=== PATIENT | female | born 1985 | race African-American/Black ===

== ENCOUNTER 2018-06-12 20:36 | Emergency (ER) | payer OTHER ==
[2018-06-12 20:53] LABS: Glucose,Whole Blood 85 mg/dL (75-99)
[2018-06-12 20:54] VITALS: RESP 18
[2018-06-12] MEDS ORDERED: SODIUM CHLORIDE 0.9% 1,000 ML IV STA (20:57)
--- NOTE | 2018-06-12 21:17 | ED ---
General Adult HPI - General Chief complaint: Seizure Stated complaint: seizure Source: patient, EMS Mode of arrival: EMS Limitations: no limitations - History of Present Illness Initial comments: Dictation was produced using go2 media dictation software. please excuse any grammatical, word or spelling errors. Chief Complaint: 33-year-old -[place] female past medical history of nonepileptic genic seizures presents after tonic-clonic activity. History of Present Illness: Patient is a 33-year-old -[place]e female who has past medical history of non-epileptogenic seizures presents after seizure-like episode. Patient was brought in by EMS. [place] she all of a sudden went into tonic-clonic like activity. Patient allegedly was having this type of activity for 15 minutes. EMS was called and she was rapidly given 10 mg of IM Versed. who is at bedside reports that patient has history of non-epileptogenic seizures. She was on certain medication however she was weaned off. states that the neurologist told her that this was triggered by anxiety. reports that she's been stressed recently. Patient unable to provide HPI at this time given she was just administered benzodiazepines. - Related Data Home Medications Medication Instructions Recorded Confirmed Unknown Control 1 tab PO DAILY 06/12/18 Allergies Allergy/AdvReac Type Severity Reaction Status Date / Time No Known Allergies Allergy Verified 06/12/18 21:40 Review of Systems ROS Statement: Those systems with pertinent positive or pertinent negative responses have been documented in the HPI. ROS Other: All systems not noted in ROS Statement are negative. Past Medical History Past Medical History: Seizure Disorder Additional Past Medical History / Comment(s): per - conversion disorder History of Any Multi-Drug Resistant Organisms: None Reported Past Surgical History: No Surgical Hx Reported Past Psychological History: No Psychological Hx Reported Smoking Status: Never smoker Past Alcohol Use History: Occasional Past Drug Use History: None Reported General Exam - General Exam Comments Initial Comments: PHYSICAL EXAM: General Impression: No acute distress HEENT: Normocephalic atraumatic, extra-ocular movements intact, pupils equal and reactive to light bilaterally, mucous membranes moist. Cardiovascular: Heart regular rate and rhythm, S1&S2 audible, no murmurs, rubs or gallops Chest: Lungs clear to auscultation bilaterally, no rhonchi, no wheeze, no rales Abdomen: Bowel sounds present, abdomen soft, non-tender, non-distended, no organomegaly Musculoskeletal: Pulses present and equal in all extremities, no peripheral edema Motor: no focal deficits noted Neurological: Moves all shows grossly Skin: Intact with no visualized rashes Psych: Not tested Limitations: no limitations Course Vital Signs 06/12/18 06/12/18 20:39 21:25 Temperature 98.8 F Pulse Rate 97 77 Respiratory 18 18 Rate Blood Pressure 102/55 104/60 O2 Sat by Pulse 100 100 Oximetry Medical Decision Making - Medical Decision Making ED course: 33-year-old -[place]amese female with known history of non- Trileptal genic seizures presents after a seizure. Vital signs upon arrival are within acceptable limits.Laboratory evaluation obtained. CBC is unremarkable. Chem she panel is negative. Patient has mild non-gap acidosis. Urine studies show mild ketonuria. However no signs to suggest urinary tract infection. Patient was observed in emergency department for several hours. More history was obtained from patient and patient's . Patient sees a specialist in [place]. They state that she has diagnosis of conversion disorder. They state that they can follow up with that physician this week. At this point patient is clear for discharge. Patient is agreeable and will follow up with neurologist. EKG Interpretation: A 12 lead EKG was obtained. It was interpreted by myself and attending physician. There is a P wave before every QRS complex. Rate is 85. Rhythm is normal sinus rhythm, DE interval 170, QRS 82, QTc 447. QT is not prolonged. No ST segment depression or elevation. Overall, this EKG is unremarkable - Lab Data Result diagrams: 06/12/18 20:50 06/12/18 20:50 Lab Results 06/12/18 06/12/18 06/12/18 Range/Units 20:50 20:50 20:51 WBC 6.2 (3.8-10.6) k/uL RBC 4.18 (3.80-5.40) m/uL Hgb 13.1 (11.4-16.0) gm/dL Hct 38.6 (34.0-46.0) % MCV 92.4 (80.0-100.0) fL MCH 31.3 (25.0-35.0) pg MCHC 33.9 (31.0-37.0) g/dL RDW 12.3 (11.5-15.5) % Plt Count 351 (150-450) k/uL Neutrophils % 62 % Lymphocytes % 27 % Monocytes % 6 % Eosinophils % 2 % Basophils % 1 % Neutrophils # 3.9 (1.3-7.7) k/uL Lymphocytes # 1.7 (1.0-4.8) k/uL Monocytes # 0.4 (0-1.0) k/uL Eosinophils # 0.1 (0-0.7) k/uL Basophils # 0.0 (0-0.2) k/uL Sodium 142 (137-145) mmol/L Potassium 4.3 (3.5-5.1) mmol/L Chloride 111 H (98-107) mmol/L Carbon Dioxide 16 L (22-30) mmol/L Anion Gap 15 mmol/L BUN 9 (7-17) mg/dL Creatinine 0.99 (0.52-1.04) mg/dL Est GFR (CKD-EPI)AfAm 87 (>60 ml/min/1.73 sqM) Est GFR (CKD-EPI)NonAf 75 (>60 ml/min/1.73 sqM) Glucose 79 (74-99) mg/dL POC Glucose (mg/dL) 85 (75-99) mg/dL POC Glu [employer] Hannah Mccurdy Calcium 9.3 (8.4-10.2) mg/dL Magnesium 1.8 (1.6-2.3) mg/dL Total Bilirubin 0.4 (0.2-1.3) mg/dL AST 25 (14-36) U/L ALT 20 (9-52) U/L Alkaline Phosphatase 48 (38-126) U/L Total Protein 8.0 (6.3-8.2) g/dL Albumin 4.4 (3.5-5.0) g/dL Urine Color Urine Appearance (Clear) Urine pH (5.0-8.0) Ur Specific [place] (1.001-1.035) Urine Protein (Negative) Urine Glucose (UA) (Negative) Urine Ketones (Negative) Urine Blood (Negative) Urine Nitrite (Negative) Urine Bilirubin (Negative) Urine Urobilinogen (<2.0) mg/dL Ur Leukocyte Esterase (Negative) Urine RBC (0-5) /hpf Urine WBC (0-5) /hpf Ur Squamous Epith Cells (0-4) /hpf Urine Bacteria (None) /hpf Granular Casts (0) /lpf Urine Mucus (None) /hpf Urine HCG, Qual (Not Detectd) 06/12/18 06/12/18 Range/Units 21:19 21:19 WBC (3.8-10.6) k/uL RBC (3.80-5.40) m/uL Hgb (11.4-16.0) gm/dL Hct (34.0-46.0) % MCV (80.0-100.0) fL MCH (25.0-35.0) pg MCHC (31.0-37.0) g/dL RDW (11.5-15.5) % Plt Count (150-450) k/uL Neutrophils % % Lymphocytes % % Monocytes % % Eosinophils % % Basophils % % Neutrophils # (1.3-7.7) k/uL Lymphocytes # (1.0-4.8) k/uL Monocytes # (0-1.0) k/uL Eosinophils # (0-0.7) k/uL Basophils # (0-0.2) k/uL Sodium (137-145) mmol/L Potassium (3.5-5.1) mmol/L Chloride (98-107) mmol/L Carbon Dioxide (22-30) mmol/L Anion Gap mmol/L BUN (7-17) mg/dL Creatinine (0.52-1.04) mg/dL Est GFR (CKD-EPI)AfAm (>60 ml/min/1.73 sqM) Est GFR (CKD-EPI)NonAf (>60 ml/min/1.73 sqM) Glucose (74-99) mg/dL POC Glucose (mg/dL) (75-99) mg/dL POC Glu [employer] ID Calcium (8.4-10.2) mg/dL Magnesium (1.6-2.3) mg/dL Total Bilirubin (0.2-1.3) mg/dL AST (14-36) U/L ALT (9-52) U/L Alkaline Phosphatase (38-126) U/L Total Protein (6.3-8.2) g/dL Albumin (3.5-5.0) g/dL Urine Color Yellow Urine Appearance Cloudy H (Clear) Urine pH 5.5 (5.0-8.0) Ur Specific [place] 1.024 (1.001-1.035) Urine Protein 1+ H (Negative) Urine Glucose (UA) Negative (Negative) Urine Ketones 1+ H (Negative) Urine Blood Trace H (Negative) Urine Nitrite Negative (Negative) Urine Bilirubin Negative (Negative) Urine Urobilinogen 2.0 (<2.0) mg/dL Ur Leukocyte Esterase Negative (Negative) Urine RBC <1 (0-5) /hpf Urine WBC 5 (0-5) /hpf Ur Squamous Epith Cells 3 (0-4) /hpf Urine Bacteria Occasional H (None) /hpf Granular Casts 10 (0) /lpf Urine Mucus Many H (None) /hpf Urine HCG, Qual Not Detected (Not Detectd) Disposition Clinical Impression: Conversion disorder Disposition: HOME SELF-CARE Condition: Fair Instructions: Recurrent Seizures in Adults (ED) Is patient prescribed a controlled substance at d/c from ED?: No Referrals: Nonstaff,Physician [Primary Care Provider] - 1-2 days Decision Time: 22:25
[2018-06-12 21:19] LABS: Basophils % (A) 1 %; Eosinophils # (A) 0.1 k/uL (0-0.7); Eosinophils % (A) 2 %; HCT 38.6 % (34.0-46.0); HGB 13.1 gm/dL (11.4-16.0); Lymphocytes # (A) 1.7 k/uL (1.0-4.8); Lymphocytes % (A) 27 %; MCH 31.3 pg (25.0-35.0); MCHC 33.9 g/dL (31.0-37.0); MCV 92.4 fL (80.0-100.0); Mean Platelet Volume 7.5; Monocytes # (A) 0.4 k/uL (0-1.0); Monocytes % (A) 6 %; Neutrophils # (A) 3.9 k/uL (1.3-7.7); Neutrophils % (A) 62 %; Platelet Count 351 k/uL (150-450); RBC 4.18 m/uL (3.80-5.40); RDW 12.3 % (11.5-15.5); WBC 6.2 k/uL (3.8-10.6)
[2018-06-12 21:34] LABS: Appearance,Urine Cloudy (Clear); Bacteria,Urine Occasional /hpf; Bilirubin,Urine Negative (Negative); Blood,Urine Trace (Negative); Color,Urine Yellow; Glucose,Urine (UA) Negative (Negative); Granular Casts,Urine 10 /lpf (0); Ketones,Urine 1+ (Negative); Leukocyte Esterase,Urine Negative (Negative); Mucus,Urine Many /hpf; Nitrite,Urine Negative (Negative); PH, Urine 5.5 (5.0-8.0); Protein,Urine 1+ (Negative); RBC,Urine <1 /hpf (0-5); Specific Gravity,Urine 1.024 (1.001-1.035); Squamous Epithelial Cell,Urine 3 /hpf (0-4); WBC,Urine 5 /hpf (0-5)
[2018-06-12 21:36] LABS: Albumin 4.4 g/dL (3.5-5.0); Calcium 9.3 mg/dL (8.4-10.2); Magnesium 1.8 mg/dL (1.6-2.3); Potassium 4.3 mmol/L (3.5-5.1); Total Bilirubin 0.4 mg/dL (0.2-1.3)
[2018-06-12 22:34] VITALS: BP 124/73; PULSE 88; TEMP 98.1
== END 2018-06-12 22:47 | disposition home or self-care (01) ==
LOC: SUPCPDRO 20:36 → EC 20:36
DX: F44.9 Dissociative and conversion disorder, unspecified (principal); E87.2 Acidosis; R82.4 Acetonuria; Z79.3 Long term (current) use of hormonal contraceptives
CPT/HCPCS: 36415; 80053; 81001; 81025; 83735; 85025; 93005; 96360; 99285

== ENCOUNTER 2019-08-27 14:11 | Emergency (ER) | payer OTHER ==
[2019-08-27] MEDS ORDERED: SODIUM CHLORIDE 0.9% 1,000 ML IV STA (14:21)
[2019-08-27 14:27] VITALS: BP 129/80; PULSE 91; RESP 16; TEMP 98
--- NOTE | 2019-08-27 14:43 | ED ---
Seizure HPI - General Chief Complaint: Seizure Stated Complaint: Seizure Time Seen by Provider: 08/27/19 14:12 Source: patient, family, EMS, RN notes reviewed Mode of arrival: EMS Limitations: no limitations - History of Present Illness Initial Comments: This a 34-year-old female presents emergency department via EMS from counselor's office. Patient reportedly had a seizure in the office. Patient does have a history of seizures. Patient is confused and slightly postictal upon arrival though improving. Patient has no specific complaints denies any abdominal pain, headache, dizziness, blurred vision, focal weakness, nausea vomiting. Patient states that she does not take any current medications. Patient states she was at her counselors discussing her anxiety issues. She denies being suicidal or homicidal. - Related Data Home Medications Medication Instructions Recorded Confirmed Unknown Control 1 tab PO DAILY 06/12/18 Allergies Allergy/AdvReac Type Severity Reaction Status Date / Time No Known Allergies Allergy Verified 06/12/18 21:40 Review of Systems ROS Statement: Those systems with pertinent positive or pertinent negative responses have been documented in the HPI. ROS Other: All systems not noted in ROS Statement are negative. Past Medical History Past Medical History: Seizure Disorder Additional Past Medical History / Comment(s): per - conversion disorder History of Any Multi-Drug Resistant Organisms: None Reported Past Surgical History: No Surgical Hx Reported Past Psychological History: No Psychological Hx Reported Smoking Status: Never smoker Past Alcohol Use History: Occasional Past Drug Use History: None Reported General Exam Limitations: no limitations General appearance: alert, in no apparent distress, anxious Head exam: Present: atraumatic, normocephalic, normal inspection Eye exam: Present: normal appearance, PERRL, EOMI. Absent: scleral icterus, conjunctival injection, periorbital swelling ENT exam: Present: normal exam, normal oropharynx, mucous membranes moist Neck exam: Present: normal inspection. Absent: tenderness, meningismus, lymphadenopathy Respiratory exam: Present: normal lung sounds bilaterally. Absent: respiratory distress, wheezes, rales, rhonchi, stridor Cardiovascular Exam: Present: regular rate, normal rhythm, normal heart sounds. Absent: systolic murmur, diastolic murmur, rubs, gallop, clicks GI/Abdominal exam: Present: soft, normal bowel sounds. Absent: distended, tenderness, guarding, rebound, rigid Neurological exam: Present: alert, oriented X3, CN II-XII intact Skin exam: Present: warm, dry, intact, normal color. Absent: rash Course Vital Signs 08/27/19 14:20 Temperature 98.0 F Pulse Rate 91 Respiratory 16 Rate Blood Pressure 129/80 O2 Sat by Pulse 100 Oximetry - Reevaluation(s) Reevaluation #1: 08/27/19 15:59 Patient's did arrive to the emergency Department and states that she has convergent disorder and that this is her normal behavior. Patient is requesting to leave at this time I did recommend workup. Medical Decision Making - Medical Decision Making 34-year-old female presented for evaluation after seizure at counselor's office. does have a history. Patient is awake alert and orientated. Patient's states that she has come emergency disorder and hospitals and her counselor makes symptoms worse. Patient advised to have testing including labs, urinalysis. Patient has been states that he prefers to take the patient home at this time that he feels she is at his normal a sign and this is a circu mferential disorder. Patient will sign out AMA. Approximately an hour after patient was discharged from the staff member brought fourth affects petition from counselor's office for bizarre behavior. I was unaware of this along with nursing staff. At this point police were contacted to find the patient and bring back for evaluation given petition. Patient was not suicidal or homicidal. Disposition Clinical Impression: Generalized seizure, Conversion disorder Disposition: Left Against Medical Advice Condition: Stable Referrals: None,Stated [Primary Care Provider] - 1-2 days
== END 2019-08-27 14:55 | disposition left against medical advice (07) ==
LOC: EC 14:11
DX: G40.409 Other generalized epilepsy and epileptic syndromes, not intractable, without status epilepticus (principal); F44.9 Dissociative and conversion disorder, unspecified; F41.9 Anxiety disorder, unspecified; Z79.3 Long term (current) use of hormonal contraceptives
CPT/HCPCS: 99284

== ENCOUNTER 2019-08-27 16:30 | Inpatient (IN) | payer MEDICAID, OTHER ==
--- NOTE | 2019-08-27 16:42 | ED ---
Psych HPI - General Source: patient, family, RN notes reviewed Mode of arrival: ambulatory Limitations: altered mental status (Inversion disorder, psychiatric issues) <Rickie Cheek - Last Filed: 08/27/19 16:40> <Hossein Pleitez - Last Filed: 08/27/19 20:19> - General Stated Complaint: Petition Time Seen by Provider: 08/27/19 16:34 - History of Present Illness Initial Comments: 34-year-old female presented back to emergency department for psychiatric evaluation. Patient was initially brought to emergency department by her first seizure in which she did have a history. Petition was faxed after the patient signed out AMA and given to staff. Patient is brought back to emergency from for this evaluation. and room states that she was fine as soon as she left the hospital but has returned to her psych issues, and which she describes her is speaking symptoms. Patient information is limited from patient as she does not want to discuss anything. She states that nothing is wrong with her. Patient had no suicidal or homicidal (Rickie Cheek) - Related Data Home Medications Medication Instructions Recorded Confirmed Ergocalciferol [Vitamin D2] 50,000 unit PO Q7D 08/27/19 08/27/19 Levonorgestrel-Ethin Estradiol 1 tab PO DAILY 08/27/19 08/27/19 [Levora-28 Tablet] Allergies Allergy/AdvReac Type Severity Reaction Status Date / Time No Known Allergies Allergy Verified 08/27/19 18:14 Review of Systems ROS Other: All systems not noted in ROS Statement are negative. <Rickie Cheek - Last Filed: 08/27/19 16:40> ROS Other: All systems not noted in ROS Statement are negative. <Hossein Pleitez - Last Filed: 08/27/19 20:19> ROS Statement: Those systems with pertinent positive or pertinent negative responses have been documented in the HPI. Past Medical History Past Medical History: Seizure Disorder Additional Past Medical History / Comment(s): per - conversion disorder History of Any Multi-Drug Resistant Organisms: None Reported Past Surgical History: No Surgical Hx Reported Past Psychological History: No Psychological Hx Reported Smoking Status: Never smoker Past Alcohol Use History: Occasional Past Drug Use History: None Reported <Rickie Cheek - Last Filed: 08/27/19 16:40> General Exam General appearance: alert, in no apparent distress Head exam: Present: atraumatic, normocephalic, normal inspection Eye exam: Present: normal appearance, PERRL, EOMI. Absent: scleral icterus, conjunctival injection, periorbital swelling ENT exam: Present: normal exam, mucous membranes moist Neck exam: Present: normal inspection. Absent: tenderness, meningismus, lymphadenopathy Respiratory exam: Present: normal lung sounds bilaterally. Absent: respiratory distress, wheezes, rales, rhonchi, stridor Cardiovascular Exam: Present: regular rate, normal rhythm, normal heart sounds. Absent: systolic murmur, diastolic murmur, rubs, gallop, clicks Neurological exam: Present: alert Skin exam: Present: warm, dry, intact, normal color. Absent: rash <Rickie Cheek M - Last Filed: 08/27/19 16:40> Limitations: altered mental status General appearance: alert Head exam: Present: atraumatic, normocephalic, normal inspection Eye exam: Present: normal appearance, PERRL, EOMI. Absent: scleral icterus, conjunctival injection, periorbital swelling ENT exam: Present: normal exam, mucous membranes moist Neck exam: Present: normal inspection. Absent: tenderness, meningismus, lymphadenopathy Respiratory exam: Present: normal lung sounds bilaterally. Absent: respiratory distress, wheezes, rales, rhonchi, stridor Cardiovascular Exam: Present: regular rate, normal rhythm, normal heart sounds. Absent: systolic murmur, diastolic murmur, rubs, gallop, clicks GI/Abdominal exam: Present: soft, normal bowel sounds. Absent: distended, tenderness, guarding, rebound, rigid Extremities exam: Present: normal inspection, full ROM, normal capillary refill. Absent: tenderness, pedal edema, joint swelling, calf tenderness Back exam: Present: normal inspection Neurological exam: Present: alert, oriented X3, CN II-XII intact Psychiatric exam: Present: normal affect, normal mood Skin exam: Present: warm, dry, intact, normal color. Absent: rash <Hossein Pleitez B - Last Filed: 08/27/19 20:19> Course <Hossein Pleitez B - Last Filed: 08/27/19 20:19> Vital Signs 08/27/19 16:49 Temperature 99.4 F Pulse Rate 116 H Respiratory 16 Rate Blood Pressure 140/70 O2 Sat by Pulse 100 Oximetry - Reevaluation(s) Reevaluation #1: 08/27/19 20:18 Patient is made medically cleared and seen evaluated by me after decision for inpatient treatment, did fill out clinical certification (Hossein Pleitez) Medical Decision Making <Hossein Pleitez - Last Filed: 08/27/19 20:19> - Medical Decision Making 34 female seen by psychiatry here in the ER, will admit for psychiatric evaluation and treatment (Hossein Pleitez) - Lab Data Lab Results 08/27/19 08/27/19 Range/Units 18:41 18:41 Urine Color Yellow Urine Appearance Cloudy H (Clear) Urine pH 6.0 (5.0-8.0) Ur Specific [place] 1.037 H (1.001-1.035) Urine Protein 1+ H (Negative) Urine Glucose (UA) Negative (Negative) Urine Ketones 1+ H (Negative) Urine Blood Trace H (Negative) Urine Nitrite Negative (Negative) Urine Bilirubin Negative (Negative) Urine Urobilinogen 4.0 (<2.0) mg/dL Ur Leukocyte Esterase Small H (Negative) Urine RBC 1 (0-5) /hpf Urine WBC 13 H (0-5) /hpf Ur Squamous Epith Cells 14 H (0-4) /hpf Amorphous Sediment Rare H (None) /hpf Urine Bacteria Occasional H (None) /hpf Hyaline Casts 4 H (0-2) /lpf Urine Mucus Many H (None) /hpf Urine HCG, Qual Detected (Not Detectd) Urine Opiates Screen Not Detected (NotDetected) Ur Oxycodone Screen Not Detected (NotDetected) Urine Methadone Screen Not Detected (NotDetected) Ur Propoxyphene Screen Not Detected (NotDetected) Ur Barbiturates Screen Not Detected (NotDetected) U Tricyclic Antidepress Not Detected (NotDetected) Ur Phencyclidine Scrn Not Detected (NotDetected) Ur Amphetamines Screen Not Detected (NotDetected) U Methamphetamines Scrn Not Detected (NotDetected) U Benzodiazepines Scrn Not Detected (NotDetected) Urine Cocaine Screen Not Detected (NotDetected) U Marijuana (THC) Screen Not Detected (NotDetected) Disposition <Rickie Cheek - Last Filed: 08/27/19 16:40> Is patient prescribed a controlled substance at d/c from ED?: No <Hossein Pleitez - Last Filed: 08/27/19 20:19> Clinical Impression: Conversion disorder, Psychosis Disposition: TRANSFER TO PSYCH HOSP/UNIT Condition: Fair Referrals: Jaren Skelton MD [Primary Care Provider] - 1-2 days
[2019-08-27] MEDS ORDERED: LORazepam 2 MG/ML INJ IM STA (18:00)
[2019-08-27 19:49] LABS: Amorphous Sediment,Urine Rare /hpf; Appearance,Urine Cloudy (Clear); Bacteria,Urine Occasional /hpf; Bilirubin,Urine Negative (Negative); Blood,Urine Trace (Negative); Color,Urine Yellow; Glucose,Urine (UA) Negative (Negative); Hyaline Casts,Urine 4 /lpf (0-2); Ketones,Urine 1+ (Negative); Leukocyte Esterase,Urine Small (Negative); Mucus,Urine Many /hpf; Nitrite,Urine Negative (Negative); Protein,Urine 1+ (Negative); RBC,Urine 1 /hpf (0-5); Specific Gravity,Urine 1.037 (1.001-1.035); Squamous Epithelial Cell,Urine 14 /hpf (0-4); WBC,Urine 13 /hpf (0-5)
[2019-08-27 19:58] LABS: Amphetamine Screen,Urine Not Detected (NotDetected); Barbiturate Screen,Urine Not Detected (NotDetected); Benzodiazepines Screen,Urine Not Detected (NotDetected); Cocaine Screen,Urine Not Detected (NotDetected); Methadone Screen, Urine Not Detected (NotDetected); Opiate Screen,Urine Not Detected (NotDetected); Oxycodone Screen, Urine Not Detected (NotDetected); Phencyclidine Screen,Urine Not Detected (NotDetected); Tricyclic Antidepressant,Urine Not Detected (NotDetected); Urn Cannabinoid Scrn Not Detected (NotDetected)
[2019-08-27] MEDS ORDERED: ACETAMINOPHEN TAB 325 MG TAB PO STA (20:23)
[2019-08-27 20:29] LABS: Alcohol <10 mg/dL
[2019-08-27] MEDS ORDERED: ZIPRASIDONE 20 MG VIAL IM PRN (20:44)
[2019-08-28] MEDS: LORazepam 2 MG/ML INJ IM PRN ×2 (05:21→21:59)
[2019-08-28 08:50] LABS: Basophils % (A) 0 %; Eosinophils # (A) 0.2 k/uL (0-0.7); Eosinophils % (A) 2 %; HCT 38.3 % (34.0-46.0); HGB 13.1 gm/dL (11.4-16.0); Lymphocytes # (A) 1.8 k/uL (1.0-4.8); Lymphocytes % (A) 23 %; MCH 31.3 pg (25.0-35.0); MCHC 34.2 g/dL (31.0-37.0); MCV 91.7 fL (80.0-100.0); Mean Platelet Volume 6.7; Monocytes # (A) 0.3 k/uL (0-1.0); Monocytes % (A) 4 %; Neutrophils # (A) 5.5 k/uL (1.3-7.7); Neutrophils % (A) 70 %; Platelet Count 355 k/uL (150-450); RBC 4.18 m/uL (3.80-5.40); WBC 7.8 k/uL (3.8-10.6)
[2019-08-28 09:07] LABS: ALT 13 U/L (9-52); AST 22 U/L (14-36); African American GFR (CKD) >90 (>60 ml/min/1.73 sqM); Albumin 4.2 g/dL (3.5-5.0); Alkaline Phosphatase 61 U/L (38-126); Anion Gap 10 mmol/L; Blood Urea Nitrogen 8 mg/dL (7-17); Calcium 9.3 mg/dL (8.4-10.2); Carbon Dioxide 19 mmol/L (22-30); Chloride 108 mmol/L (98-107); Cholesterol 168 mg/dL (<200); Glucose 92 mg/dL (74-99); HDL Cholesterol 35 mg/dL (40-60); LDL Cholesterol,Calculated 120 mg/dL (0-99); Potassium 3.8 mmol/L (3.5-5.1); Sodium 137 mmol/L (137-145); Total Bilirubin 0.9 mg/dL (0.2-1.3); Total Protein 8.1 g/dL (6.3-8.2); Triglycerides 63 mg/dL (<150)
--- NOTE | 2019-08-28 11:13 | US ---
EXAMINATION TYPE: Transabdominal DATE OF EXAM: 08/28/2019 9:50 AM COMPARISON: NONE CLINICAL HISTORY: unknown dates and times.. Unknown dates, pt denies pain and/or bleeding EXAM PERFORMED: Transabdominal (TA) EXAM MEASUREMENTS: GESTATIONAL AGE / DATING Physician Established: Not yet established Dates by LMP: Unknown Dates by First Scan: No prior Dates by Current Scan for: (5 weeks/6 days) EDC: 04/23/2020 MATERNAL ANATOMY Uterus: 7.5 x 5.1 x 6.1 cm Right Ovary: 2.5 x 2.2 x 1.7 cm Left Ovary: 2.4 x 2.3 x 2.0 cm Post CDS / Adnexa: Prominent/dilated vessels within left adnexa , this can relate to pelvic congestio n syndrome in the appropriate clinical setting. Presence of free fluid: No Presence of corpus luteal cyst: Left Ovary= 1.7 x 1.4 x 1.7 cm Presence of subchorionic bleed: No GESTATION / SURVEY CRL: Too early MSD: 1.2 cm (5 weeks/6 days) Yolk Sac (normal less than 6mm): 2mm Date of LMP: Unknown Gestational sac with yolk sac visualized within uterus, too early to visualize CRL, prominent vesse ls left adnexa, no other abnormality visualized at this time Mental health pt scanned portable, TV not performed IMPRESSION: A gestational sac and yolk sac are visualized however no pole is yet seen. Findings may relate to early intrauterine or anembryonic . Short-term follow-up pelvic ult rasound is recommended in 5-7 days as normal is not yet confirmed.
--- NOTE | 2019-08-28 11:55 | P.HP ---
Psychiatric H&P - . History & Physical: Allergies Allergy/AdvReac Type Severity Reaction Status Date / Time No Known Allergies Allergy Verified 08/27/19 18:14 Vital Signs Temp 97.8 F 08/28/19 04:50 Pulse 92 08/28/19 04:50 Resp 20 08/28/19 04:50 BP 120/55 08/28/19 04:50 Pulse Ox 100 08/27/19 16:49 Intake & Output 08/27/19 08/28/19 08/28/19 18:59 06:59 18:59 Weight 71.214 kg Laboratory Last Values WBC 7.8 k/uL (3.8-10.6) 08/28/19 08:22 RBC 4.18 m/uL (3.80-5.40) 08/28/19 08:22 Hgb 13.1 gm/dL (11.4-16.0) 08/28/19 08:22 Hct 38.3 % (34.0-46.0) 08/28/19 08:22 MCV 91.7 fL (80.0-100.0) 08/28/19 08:22 MCH 31.3 pg (25.0-35.0) 08/28/19 08:22 MCHC 34.2 g/dL (31.0-37.0) 08/28/19 08:22 RDW 12.0 % (11.5-15.5) 08/28/19 08:22 Plt Count 355 k/uL (150-450) 08/28/19 08:22 Neutrophils % 70 % 08/28/19 08:22 Lymphocytes % 23 % 08/28/19 08:22 Monocytes % 4 % 08/28/19 08:22 Eosinophils % 2 % 08/28/19 08:22 Basophils % 0 % 08/28/19 08:22 Neutrophils # 5.5 k/uL (1.3-7.7) 08/28/19 08:22 Lymphocytes # 1.8 k/uL (1.0-4.8) 08/28/19 08:22 Monocytes # 0.3 k/uL (0-1.0) 08/28/19 08:22 Eosinophils # 0.2 k/uL (0-0.7) 08/28/19 08:22 Basophils # 0.0 k/uL (0-0.2) 08/28/19 08:22 Sodium 137 mmol/L (137-145) 08/28/19 08:22 Potassium 3.8 mmol/L (3.5-5.1) 08/28/19 08:22 Chloride 108 mmol/L (98-107) H 08/28/19 08:22 Carbon Dioxide 19 mmol/L (22-30) L 08/28/19 08:22 Anion Gap 10 mmol/L 08/28/19 08:22 BUN 8 mg/dL (7-17) 08/28/19 08:22 Creatinine 0.73 mg/dL (0.52-1.04) 08/28/19 08:22 Est GFR (CKD-EPI)AfAm >90 (>60 ml/min/1.73 sqM) 08/28/19 08:22 Est GFR (CKD-EPI)NonAf >90 (>60 ml/min/1.73 sqM) 08/28/19 08:22 Glucose 92 mg/dL (74-99) 08/28/19 08:22 Calcium 9.3 mg/dL (8.4-10.2) 08/28/19 08:22 Total Bilirubin 0.9 mg/dL (0.2-1.3) 08/28/19 08:22 AST 22 U/L (14-36) 08/28/19 08:22 ALT 13 U/L (9-52) 08/28/19 08:22 Alkaline Phosphatase 61 U/L (38-126) 08/28/19 08:22 Total Protein 8.1 g/dL (6.3-8.2) 08/28/19 08:22 Albumin 4.2 g/dL (3.5-5.0) 08/28/19 08:22 Triglycerides 63 mg/dL (<150) 08/28/19 08:22 Cholesterol 168 mg/dL (<200) 08/28/19 08:22 LDL Cholesterol, Calc 120 mg/dL (0-99) H 08/28/19 08:22 HDL Cholesterol 35 mg/dL (40-60) L 08/28/19 08:22 TSH 2.030 mIU/L (0.465-4.680) 08/28/19 08:22 HCG, Quant 25697.0 mIU/mL 08/27/19 20:11 Urine Color Yellow 08/27/19 18:41 Urine Appearance Cloudy (Clear) H 08/27/19 18:41 Urine pH 6.0 (5.0-8.0) 08/27/19 18:41 Ur Specific [place] 1.037 (1.001-1.035) H 08/27/19 18:41 Urine Protein 1+ (Negative) H 08/27/19 18:41 Urine Glucose (UA) Negative (Negative) 08/27/19 18:41 Urine Ketones 1+ (Negative) H 08/27/19 18:41 Urine Blood Trace (Negative) H 08/27/19 18:41 Urine Nitrite Negative (Negative) 08/27/19 18:41 Urine Bilirubin Negative (Negative) 08/27/19 18:41 Urine Urobilinogen 4.0 mg/dL (<2.0) 08/27/19 18:41 Ur Leukocyte Esterase Small (Negative) H 08/27/19 18:41 Urine RBC 1 /hpf (0-5) 08/27/19 18:41 Urine WBC 13 /hpf (0-5) H 08/27/19 18:41 Ur Squamous Epith Cells 14 /hpf (0-4) H 08/27/19 18:41 Amorphous Sediment Rare /hpf (None) H 08/27/19 18:41 Urine Bacteria Occasional /hpf (None) H 08/27/19 18:41 Hyaline Casts 4 /lpf (0-2) H 08/27/19 18:41 Urine Mucus Many /hpf (None) H 08/27/19 18:41 Urine HCG, Qual Detected (Not Detectd) 08/27/19 18:41 Urine Opiates Screen Not Detected (NotDetected) 08/27/19 18:41 Ur Oxycodone Screen Not Detected (NotDetected) 08/27/19 18:41 Urine Methadone Screen Not Detected (NotDetected) 08/27/19 18:41 Ur Propoxyphene Screen Not Detected (NotDetected) 08/27/19 18:41 Ur Barbiturates Screen Not Detected (NotDetected) 08/27/19 18:41 U Tricyclic Antidepress Not Detected (NotDetected) 08/27/19 18:41 Ur Phencyclidine Scrn Not Detected (NotDetected) 08/27/19 18:41 Ur Amphetamines Screen Not Detected (NotDetected) 08/27/19 18:41 U Methamphetamines Scrn Not Detected (NotDetected) 08/27/19 18:41 U Benzodiazepines Scrn Not Detected (NotDetected) 08/27/19 18:41 Urine Cocaine Screen Not Detected (NotDetected) 08/27/19 18:41 U Marijuana (THC) Screen Not Detected (NotDetected) 08/27/19 18:41 Serum Alcohol <10 mg/dL 08/27/19 20:11 08/28/19 11:42 IDENTIFYING DATA: This patient is a 34-year-old -Polish female who resents to the mental health unit from the emergency room with a suspicion she is experiencing psychosis and symptoms of conversion disorder. HPI: The patient presents with a petition completed by her therapist at [facility] stating "client started shaking, holding her head, crying, yelling, with bizarre behavior. Appeared to be having psychotic break inappropriate laughing, spitting, excessive breathing nonresponsive." The patient indicates she does not know why she was brought to the hospital. She states that she told her therapist that she has a history of episodes like this. She indicates that that was the third meeting with her therapist. It was the first time they started to address therapeutic issues. The patient states that 2 years ago something significant happened regarding her and this caused a "drastic turn in my life". Since then she has had episodes that others have described as pseudoseizures. She states that she does not remember what happened yesterday in the office and before she knew what she was in the hospital. She states she does not want medicine and she doesn't like hospitals. She reports that her mood is sad she has been tearful on a regular basis. Appetite and weight are reported as normal. She states that she sleeps 8 hours but is fragmented throughout the evening. Energy is low. She describes no suicidal ideation intent or plan she reports no homicidal ideation intent or plan. She is endorsing no symptoms of psychosis such as hallucinations or specific delusions. She endorses no history of hypomanic or manic episodes. She tolerated most of the session until the end. She clearly became more anxious she began wringing her hands and became quiet. She started to then hum and then began speaking with neologisms or just making sounds. This went on until I directed her that we were going to end our session and she left the office. She was unwilling to discuss treatment options any further. PAST PSYCHIATRIC HISTORY: She denies any history of prior inpatient psychiatric hospitalization, she reports no history of suicide attempts. She initially stated she had never been on any psychotropic medication then later in the session states that she was prescribed Prozac and took it for 1 month and it provided no benefit. She did receive Ativan in the emergency room yesterday which seem to have a calming effect. She states that her family is in [facility] and she went to see a therapist so she had someone to talk to. PMH: It was discovered that she may be as she had a positive urine hCG. Ultrasound demonstrated gestational and yolk sac but was not conclusive for yet ALLERGIES: NO KNOWN DRUG ALLERGIES MEDICATIONS: None CHEMICAL DEPENDENCY HISTORY: She reports using alcohol 1-2 drinks every 2 weeks she reports no use of marijuana or illicit drugs she's never been placed in residential treatment for chemical dependency reasons FAMILY PSYCHIATRIC HISTORY: None reported, no suicides in the family FAMILY CHEMICAL DEPENDENCY HISTORY: None reported SOCIAL HISTORY: She reports that she is for greater than 10 years she characterizes the marriage as being "okay". At another time in the session she states that she can't always talk to her . She has 3 children 2 daughters aged 4 and 9 and a son 13 years old. She lives with her children and her and her [id number]. She is unemployed. 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 She is originally from [facility] she has been in the [place] for 2 years. She describes no legal history she describes no abuse history. She reports primarily her sister in [facility] and her other sister in [place] are supportive. MENTAL STATUS EXAM: The patient is an overweight -Polish female appearing her stated age. She is alert. She remained seated in the chair. For much of the session she has her head down on the table. Her behavior doesn't change during the course of the interview as noted. She is tearful during the session. She indicates a sad mood. She describes distress in terms of the episodes happening. She reports no suicidal or homicidal ideation intent or plan. Specifically she denies having any thoughts of harming her children. She endorses no auditory or visual hallucinations or any specific delusions. She demonstrates no verbal or physical aggressiveness. He demonstrates no involuntary repetitive movements. We did not complete any cognitive questioning before she withdrew from the conversation. STRENGTHS/WEAKNESSES: Strengths: Housing, described support from her sisters. Weaknesses: Described limited support from her , coping skills INTELLECTUAL FUNCTIONING: Average IMPRESSIONS: [] 1. Depression unspecified rule out major depressive disorder, panic attacks, rule out generalized anxiety disorder, rule out conversion disorder 2. Possible intrauterine PLAN: The patient has been admitted to the mental health unit she is here involuntarily. The patient was not able to tolerate a discussion regarding continued hospitalization and treatment options. Her symptoms seem to be causing significant dysfunction. I did complete a second clinical certificate so that we are able to evaluate her further and treat her. We will monitor for symptoms of psychosis but her presentation may be more anxiety driven. We will consider initiating an antidepressant such as Zoloft. Obviously we will try to minimize use of medication if she is in fact but we will have to weigh risks and benefits in terms of her overall ability to function. She will be seen by internal medicine as well as obstetrics. Social work will meet with her to complete a psychosocial assessment. We will monitor her for safety and encourage participation in the milieu. We will involve family in treatment and discharge planning as she will allow.
--- NOTE | 2019-08-28 13:37 | P.OBCN ---
History of Present Illness Consult date: 08/28/19 Reason for consult: other () Chief complaint: unknown History of present illness: This is a 35-year-old 6 para 3023 with 2 prior elective terminations of and 3 spontaneous vaginal deliveries. 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 She does state that she will just get rid of this when she is discharged. She does state she had a last menstrual period of approximately July 21. Prior to this consult being done she did had a quantitative beta hCG that was 13,000, ultrasound was completed showing an intrauterine gestational sac with yolk sac no pole was identified. She denies any vaginal bleeding. She is admitted on voluntarily and is very uncooperative during history and questioning. Review of Systems ROS unobtainable: due to mental status Past Medical History Past Medical History: Seizure Disorder Additional Past Medical History / Comment(s): per - conversion disorder History of Any Multi-Drug Resistant Organisms: None Reported Past Surgical History: No Surgical Hx Reported Past Psychological History: No Psychological Hx Reported Smoking Status: Never smoker Past Alcohol Use History: Occasional Past Drug Use History: None Reported Medications and Allergies Home Medications Medication Instructions Recorded Confirmed Type Ergocalciferol [Vitamin D2] 50,000 unit PO Q7D 08/27/19 08/27/19 History Levonorgestrel-Ethin Estradiol 1 tab PO DAILY 08/27/19 08/27/19 History [Levora-28 Tablet] Allergies Allergy/AdvReac Type Severity Reaction Status Date / Time No Known Allergies Allergy Verified 08/27/19 18:14 Exam Osteopathic Statement: *. No significant issues noted on an osteopathic stru ctural exam other than those noted in the History and Physical/Consult. Vital Signs Temp Pulse Pulse Resp BP BP Pulse Ox 08/28/19 04:50 97.8 F 92 20 120/55 08/27/19 22:45 99.2 F 84 16 113/74 08/27/19 16:49 99.4 F 116 H 16 140/70 100 Intake and Output 08/27/19 08/28/19 08/28/19 22:59 06:59 14:59 Other: Weight 71.214 kg In general this is an uncooperative -Citizen Of [place] female breathing was noted to be nonlabored and she did not maintain eye contact and was very unwilling to even discuss her history or current status. Results Result Diagrams: 08/28/19 08:22 08/28/19 08:22 Abnormal Lab Results - Last 24 Hours (Table) 08/27/19 08/28/19 Range/Units 18:41 08:22 Chloride 108 H (98-107) mmol/L Carbon Dioxide 19 L (22-30) mmol/L LDL Cholesterol, Calc 120 H (0-99) mg/dL HDL Cholesterol 35 L (40-60) mg/dL Urine Appearance Cloudy H (Clear) Ur Specific [place] 1.037 H (1.001-1.035) Urine Protein 1+ H (Negative) Urine Ketones 1+ H (Negative) Urine Blood Trace H (Negative) Ur Leukocyte Esterase Small H (Negative) Urine WBC 13 H (0-5) /hpf Ur Squamous Epith Cells 14 H (0-4) /hpf Amorphous Sediment Rare H (None) /hpf Urine Bacteria Occasional H (None) /hpf Hyaline Casts 4 H (0-2) /lpf Urine Mucus Many H (None) /hpf Assessment and Plan (1) IUP (intrauterine ), incidental Current Visit: Yes Status: Acute Code(s): Z34.90 - ENCNTR FOR SUPRVSN OF NORMAL , UNSP, UNSP TRIMESTER SNOMED Code(s): 74684876 Plan: I did discuss labs and her pelvic ultrasound results of gestational sac and yolk sac, pole was not visualized. Would recommend repeat ultrasound in 1 weeks to confirm viability. Patient does state that she wishes to "get rid of it". Given she does not desire to continue with the she can continue current medications with the exception of her oral conceptive pill which is on her med rec form. Any medications that are class C are acceptable in . I was unable to get very much information from this patient and I apologized for the shortness of this consult. Should she have any questions please feel free to reach out.
--- NOTE | 2019-08-28 20:58 | CONS ---
CONSULTATION CHIEF COMPLAINT: Acute psychosis. HISTORY OF PRESENT ILLNESS: This is the first known admission for this 34-year-old -[place] female. She was just in the office recently for annual studies. She apparently developed some acute psychiatric symptoms and was brought to the hospital. She is unable to give details. REVIEW OF SYSTEMS: She denies headaches, syncope, chest pain, hypertension, heart disease, abdominal pain, nausea, vomiting, hematemesis, melena, hematochezia, renal failure, dysuria, diabetes, etc. Past medical history, family history, and personal and social histories reveal that she is NOT ALLERGIC TO ANY MEDICATION. She is only on control. Surgically she has had removal of an ectopic . Family history is unremarkable. She does not smoke and normally drinks occasionally. PHYSICAL EXAMINATION: Blood pressure 126/78, pulse 72, respirations 16. She is afebrile. In general she appears to be well developed, well nourished, in no acute distress. Skin color is normal. Skin is warm and dry. Lymph nodes are not enlarged. Head, ears, eyes, nose, mouth and throat are normal. Neck veins are not distended. Thyroid is not enlarged. Chest is clear. Cardiac exam is normal. Abdomen is soft, nontender. Extremities are normal. Neurologically she is intact. IMPRESSION: Acute psychosis, etiology unknown. RECOMMENDATIONS: None at this time. I will be happy to follow, should she develop any medical problems. MMODL / IJN: [id number] /
[2019-08-29] MEDS: LEVONORGESTREL ETHIN ESTRADIOL PO SCH (06:08)
--- NOTE | 2019-08-29 10:32 | P.PN ---
Progress Note - Text Interval history: The patient is found in her room she follows me to an interview room. She indicates her mood is still depressed and anxious. I was called last evening that the patient had another anxiety-type episode. She was given Ativan IM. We had a lengthy discussion about her presentation. We reviewed treatment options. Ultimately she told me about the traumatic experience that occurred 2 years ago that seemed to have trigger these panic episodes. In terms of medication management we decided to initiate Zoloft for depression and anxiety symptoms. The patient was seen by obstetrics. They recommended repeat ultrasound in 1 week to determine the viability of the . The patient had expressed to Dr. Skinner that she did not plan on proceeding with the . Mental status exam: The patient is alert she is dressed in her own clothing hygiene grooming are adequate. Speech is fluent spontaneous nonpressured. She reports a sad mood with ongoing anxiety. She feels helpless at times when these episodes happen. She reports no suicidal or homicidal ideation. She is endorsing no auditory or visual hallucinations or any specific delusions. She demonstrates no verbal or physical aggressiveness. Initially she is mildly irritable in terms of affect but this does resolve during the course of the session. She demonstrates some tearfulness. She demonstrates no tangential thinking loose associations or flight of ideas. Insight and judgment limited but improving. Plan: The patient appears to be struggling with a major depressive disorder panic attacks and possible generalized anxiety disorder. There is no clear evidence of psychosis at this time. We will proceed with starting Zoloft 25 mg at bedtime and we'll likely titrate the dose further. We will monitor her for safety. She is instructed to use Ativan only as needed. Vital signs reviewed.
[2019-08-29] MEDS ORDERED: PRENATAL VIT-IRON-FOLIC ACID 1 EACH CAP PO SCH (11:45)
[2019-08-29] MEDS: PRENATAL VIT-IRON-FOLIC ACID 1 EACH CAP PO SCH (12:15)
[2019-08-29] MEDS: SERTRALINE 25 MG TAB PO SCH (21:17)
[2019-08-30] MEDS: LEVONORGESTREL ETHIN ESTRADIOL PO SCH (06:13)
[2019-08-30] MEDS: ACETAMINOPHEN TAB 325 MG TAB PO PRN (08:46)
--- NOTE | 2019-08-30 10:49 | P.PN ---
Progress Note - Text Interval history: The patient is found in her room she follows me to an interview room. She indicates she had an episode yesterday morning and later in the evening. She states she did have a discussion with her and reports he was agreeable to suggestions that she made. He will be visiting him this evening. She continues to state that she will likely not continue the . She has no questions or concerns about the medication. She is encouraged to participate in the milieu she expresses concerns about doing so. She continues to state she would like to be discharged mental health unit. Mental status exam: The patient is alert she dressed her own clothing eye contact is appropriate. Speech is fluent spontaneous nonpressured. She indicates she has no thoughts of harming herself no suicidal ideation intent or plan or homicidal ideation intent or plan. She is reporting no auditory or visual hallucinations or any specific delusions. She demonstrates no tangential thinking loose associations or flight of ideas. She does not appear hypomanic or manic. She maintains a constricted affect. She demonstrates future oriented thinking. Insight and judgment slowly improving. Plan: The patient will continue on the Zoloft we will plan to titrate that soon. There is no evidence of psychosis. We again processed some of her stressors and suggestions were made for cognitive reframing. We will await input from her . Social work will be asked to contact him regarding his visits. She discussed plans for individual therapy and would like to continue with the same therapist as long as she can "handle my episodes". Vital signs reviewed.
[2019-08-30] MEDS: PRENATAL VIT-IRON-FOLIC ACID 1 EACH CAP PO SCH (11:32)
[2019-08-30] MEDS: SERTRALINE 25 MG TAB PO SCH (21:00)
[2019-08-31 06:54] VITALS: PULSE 69
--- NOTE | 2019-08-31 09:41 | P.PN ---
Progress Note - Text Interval history: The patient is found in her room she follows me to an interview room. She indicates her visited last evening. She states he has been supportive. We again discussed the circumstances precipitating the admission. We discussed the episode she is having. We discussed how she will approach her individual therapist when she returns to that clinic. We decided to increase the Zoloft to 50 mg at bedtime. She is agreeable to having social work contact her for support meeting. She states she she had one episode since I seen her last but it was minor. She was able to sleep last night appetite stable. Mental status exam: The patient is alert she stressor own clothing hygiene grooming adequate. Speech is fluent spontaneous nonpressured. She reports feeling safe. Mood is mildly improved. She does ask several questions regarding the medication and how it can help her episodes. She is reporting that she feels safe in the hospital she reports no homicidal thoughts. She reports no auditory or visual hallucinations or any specific delusions. There is no observed evidence of psychosis. She demonstrates no tangential thinking loose associations or flight of ideas. She does not appear hypomanic or manic. Affect is starting to show some range appropriately. Plan: The patient will continue on the Zoloft we will titrate to 50 mg at bedtime. She is reporting no side effects from the medication. Social work will be asked to arrange a support meeting involving her . We will ant icipate discharging her in the next 1-2 days if clinically appropriate. She is encouraged to participate in the milieu. Vital signs reviewed.
[2019-08-31] MEDS: ACETAMINOPHEN TAB 325 MG TAB PO PRN ×2 (11:13→17:58)
[2019-08-31] MEDS: LEVONORGESTREL ETHIN ESTRADIOL PO SCH (11:14)
[2019-08-31] MEDS: PRENATAL VIT-IRON-FOLIC ACID 1 EACH CAP PO SCH (13:01)
[2019-08-31] MEDS ORDERED: SERTRALINE 50 MG TAB PO SCH (21:00)
[2019-09-01 06:55] VITALS: BP 116/59; RESP 18; TEMP 98.4
[2019-09-01] MEDS: LEVONORGESTREL ETHIN ESTRADIOL PO SCH (08:12)
--- NOTE | 2019-09-01 10:03 | P.DS ---
Providers Date of admission: 08/27/19 20:34 Expected date of discharge: 09/01/19 Attending physician: Canelo Corrales Consults: 08/27/19 20:44 Consult Physician Routine Consulting Provider: Talita Skinner Consult Reason/Comments: H&P for mental health initial assessment for Do you want consulting provider notified?: Yes, Notify in am Primary care physician: Jaren Skelton - Discharge Diagnosis(es) (1) Major depressive disorder, recurrent severe without psychotic features Current Visit: Yes Status: Acute Priority: High (2) Panic attacks Current Visit: Yes Status: Acute Priority: High Hospital Course: Brief summary of admission note: This patient is a 34-year-old female who presented to the mental health unit through the emergency room with a suspicion she was experiencing psychosis and symptoms of conversion disorder. The patient was petition to the hospital by her therapist stating the patient was shaking holding her had crying yelling and demonstrating bizarre behavior which appeared to be a psychotic break. Upon presentation to the hospital the patient described that she has been having episodes like this for the last 2 years after something significant happened with her marriage. She states it was a drastic turn in her life. 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 She reported that these episodes are happening in untreated fashion. Initially she described a depressed mood sleep was fragmented energy level low she had been more tearful. She is experiencing some hopelessness thinking. For full detail refer to my psychiatric evaluation dated 08/28/2019. Summary of hospital course: The patient was admitted to the mental health unit involuntarily. A second clinical certificate was completed. She met with an traffic law attorney and deferred. We reviewed her presenting symptoms and treatment options. We decided to initiate Zoloft titrating to 50 mg at bedtime. Incidentally it was discovered that she may be with a positive urine hCG. She was seen by obstetrics who recommended a ultrasound in one week as a viable could not be confirmed yet with only the gestational and yolks sacs visible. The patient indicated that she was going to terminate the . We discussed the use of Zoloft with including risks and benefits and she was comfortable continuing the medication. She was seen by internal medicine for routine history and physical exam. Social work met with the patient to complete a psychosocial assessment and for discharge planning purposes. The patient's did visit over the weekend twice and she found that visit supportive. The patient has reported a progressive improvement of symptoms while here. She has demonstrated some of her episodes which appear to be anxiety mediated. There is no evidence of any true epileptic activity. She endorses no suicidal thoughts and reports she does not feel hopeless. Mental status exam: The patient is alert she is dressed in her own clothing eye contact is appropriate. Speech is fluent spontaneous nonpressured. She indicates her mood is better. She is reporting no hopelessness thinking she reports no suicidal ideation intent or plan. She reports no homicidal ideation intent or plan. At no time did she describe any thoughts of wanting to hurt her children. She reports no auditory or visual hallucinations or any specific delusions. She demonstrated no evidence of psychosis during the hospitalization. She demonstrates no tangential thinking loose associations or flight of ideas. She does not appear hypomanic or manic. She demonstrates no verbal or physical aggressiveness. She remains oriented to person place and date. She demonstrates future oriented thinking. Impressions 1. Major depressive disorder recurrent severe without psychosis, panic attacks, rule out conversion disorder 2. Suspected intrauterine Plan: The patient will be discharged mental health unit today following a successful family meeting involving her . We will have the patient continue Zoloft 50 mg at bedtime with a plan of titrating to 100 mg at bedtime in the next 2 weeks. We discussed the risks and benefits of using Zoloft with and her questions were answered. The patient has stated several time she intends on terminating the as an outpatient. We will refer the patient to [facility] for continued psychiatric treatment. She is encouraged to continue refraining from any use of alcohol marijuana or illicit drugs. At this time there is no imminent safety risk she is appropriate for transition to outpatient care. She is instructed to return to the hospital than he acute safety concerns. Patient Condition at Discharge: Stable Plan - Discharge Summary New Discharge Prescriptions: New Sertraline [Zoloft] 50 mg PO HS #60 tab Continue Ergocalciferol [Vitamin D2 (DRISDOL)] 50,000 unit PO Q7D Discontinued Levonorgestrel-Ethin Estradiol [Levora-28 Tablet] 1 tab PO DAILY Discharge Medication List Ergocalciferol [Vitamin D2 (DRISDOL)] 50,000 unit PO Q7D 08/27/19 [History] Sertraline [Zoloft] 50 mg PO HS #60 tab 09/01/19 [Rx] Follow up Appointment(s)/Referral(s): [facility] [Outside] - 09/03/19 8:30 am (Walk In 8:30-3pm) Jaren Skelton MD [Primary Care Provider] - 1-2 days Activity/Diet/Wound Care/Special Instructions: Per recommendation of OB consultation, repeat ultrasound 1 week from 08/28/19.
[2019-09-01] MEDS: ACETAMINOPHEN TAB 325 MG TAB PO PRN (13:20)
[2019-09-01] MEDS: PRENATAL VIT-IRON-FOLIC ACID 1 EACH CAP PO SCH (13:20)
== END 2019-08-31 15:46 | disposition home or self-care (01) | DRG 832 ==
LOC: EC 16:30 → 3MHU 20:34
PROVIDERS: ADMIT Psychiatry & Neurology Psychiatry; ATTEND Psychiatry & Neurology Psychiatry
DX: O99.341 Other mental disorders complicating pregnancy, first trimester (principal); F33.2 Major depressive disorder, recurrent severe without psychotic features; F41.0 Panic disorder [episodic paroxysmal anxiety]; Z79.899 Other long term (current) drug therapy
CPT/HCPCS: 36415; 76801; 80053; 80061; 80306; 80320; 81001; 81025; 83036; 84443; 84702; 85025; 96372; 99285

== ENCOUNTER → 2019-09-14 | Outpatient (CLI) | payer OTHER ==
--- NOTE | 2019-09-14 16:12 | US ---
EXAMINATION TYPE: US abdomen limited DATE OF EXAM: 09/14/2019 COMPARISON: NONE CLINICAL HISTORY: 34-year-old female R10.12 left upper quadrant pain for 1 week TECHNIQUE: Multiple sonographic images of the left upper quadrant are obtained. FINDINGS: EXAM MEASUREMENTS: Spleen: 8.3 cm Left Kidney: 12.7 x 6.0 x 4.7 cm 1. Spleen: appears wnl 2. Left Kidney: upper limits of normal in size, no evidence of hydronephrosis IMPRESSION: Scanning of the left upper quadrant shows normal size of the spleen. No hydronephrosis on the left.
== END ==
LOC: RADUSWWP 13:25
PROVIDERS: ATTEND Family Medicine
DX: O99.89 Other specified diseases and conditions complicating pregnancy, childbirth and the puerperium (principal); R10.12 Left upper quadrant pain; Z3A.00 Weeks of gestation of pregnancy not specified
CPT/HCPCS: 76705

== ENCOUNTER → 2019-09-28 | Outpatient (CLI) | payer OTHER ==
--- NOTE | 2019-09-28 13:56 | US ---
EXAMINATION TYPE: Transabdominal DATE OF EXAM: 09/28/2019 1:33 PM COMPARISON: NONE CLINICAL HISTORY: Z36 CONFIRM DATES. Confirm dates. EXAM PERFORMED: Transvaginal (TV) and Transabdominal (TA) EXAM MEASUREMENTS: GESTATIONAL AGE / DATING Physician Established: Not yet established Dates by LMP: LMP unknown Dates by First Scan: Only gestational sac seen. (5 weeks/6 days) Dates by Current Scan for: (10 weeks/0 days) EDC: 04/25/2020 MATERNAL ANATOMY Uterus: 14 x 6.2 x 7.3 cm Right Ovary: 3.3 x 1.8 x 1.6 c, Left Ovary: Obscured by bowel gas. Post CDS / Adnexa: wnl Presence of free fluid: no Presence of corpus luteal cyst: yes right ovary. Presence of subchorionic bleed: No GESTATION / SURVEY CRL: 3.1 cm (10 weeks/0 days) Yolk Sac (normal less than 6mm): 3 mm Heart Rate: 162 bpm Rhythm: Normal IUP: Live IUP Beta HcG (if available): Not available at this time IMPRESSION: 1. Single live intrauterine with a calculated sonographic age of 10 weeks and 0 days and es timated date of delivery of 04/25/2020. 2. Left ovary is incidentally obscured by overlying bowel gas.
== END | disposition home or self-care (01) ==
LOC: RADUSWWP 12:41
PROVIDERS: ATTEND Family Medicine
DX: Z36.89 Encounter for other specified antenatal screening (principal); Z3A.10 10 weeks gestation of pregnancy
CPT/HCPCS: 76801; 76817

== ENCOUNTER 2019-10-20 10:24 | Emergency (ER) | payer OTHER ==
[2019-10-20 10:40] VITALS: BP 121/69; PULSE 110; RESP 16; TEMP 98.5
[2019-10-20] MEDS ORDERED: SODIUM CHLORIDE 0.9% 1,000 ML IV ONE (10:42)
--- NOTE | 2019-10-20 10:48 | ED ---
Altered Mental Status HPI - General Chief Complaint: Altered Mental Status Stated Complaint: altered mental status/13 wks preg Time Seen by Provider: 10/20/19 10:26 Source: EMS, RN notes reviewed, old records reviewed Mode of arrival: EMS Limitations: altered mental status - History of Present Illness Initial Comments: Patient is a 34-year-old female with a history of conversion disorder. She presents today from [facility] after having a difficult time talking with her intake counselor. At that time Patient started to become altered, started shaking and concern for seizure. Patient was treated one month ago for similar complaint. It was hospitalized for acute psychosis. She is at this time. 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 History is difficult as Patient will not speak, and only shake her head yes and no for communication. She arrives EMS with her [facility] counselor at this time. I did discuss the case with patient's who is not the emergency room, and requested the Patient to be discharged. I discussed with the patient's that I do need to do some evaluation including blood work. He states that this is related to her conversion disorder. - Related Data Home Medications Medication Instructions Recorded Confirmed Ergocalciferol [Vitamin D2 50,000 unit PO Q7D 08/27/19 10/20/19 (DRISDOL)] Vitamin Plus Low Iron 1 tab PO DAILY 10/20/19 10/20/19 Sertraline [Zoloft] 100 mg PO HS 10/20/19 10/20/19 Allergies Allergy/AdvReac Type Severity Reaction Status Date / Time No Known Allergies Allergy Verified 08/27/19 18:14 Review of Systems ROS Statement: Those systems with pertinent positive or pertinent negative responses have been documented in the HPI. ROS Other: All systems not noted in ROS Statement are negative. Past Medical History Past Medical History: Seizure Disorder Additional Past Medical History / Comment(s): per - conversion disorder History of Any Multi-Drug Resistant Organisms: None Reported Past Surgical History: No Surgical Hx Reported Past Psychological History: No Psychological Hx Reported Smoking Status: Never smoker Past Alcohol Use History: Occasional Past Drug Use History: None Reported General Exam - General Exam Comments Initial Comments: Patient is a 34-year-old female. Responds to stimuli and answers questions with shaking head yes and no. Will not speak. Limitations: altered mental status General appearance: alert, obtunded, other (response to pain and responds with shaking head yes and no. ) Head exam: Present: atraumatic, normocephalic, normal inspection Eye exam: Present: normal appearance, PERRL, EOMI. Absent: scleral icterus, conjunctival injection, periorbital swelling ENT exam: Present: normal exam, mucous membranes moist Neck exam: Present: normal inspection. Absent: tenderness, meningismus, lymphadenopathy Respiratory exam: Present: normal lung sounds bilaterally. Absent: respiratory distress, wheezes, rales, rhonchi, stridor Cardiovascular Exam: Present: regular rate, normal rhythm, normal heart sounds. Absent: systolic murmur, diastolic murmur, rubs, gallop, clicks GI/Abdominal exam: Present: soft, normal bowel sounds. Absent: distended, tenderness, guarding, rebound, rigid Extremities exam: Present: normal inspection, full ROM, normal capillary refill. Absent: tenderness, pedal edema, joint swelling, calf tenderness Back exam: Present: normal inspection Neurological exam: Present: alert, oriented X3, CN II-XII intact Psychiatric exam: Present: normal affect, normal mood Skin exam: Present: warm, dry, intact, normal color. Absent: rash Course Vital Signs 10/20/19 10:26 Temperature 98.5 F Pulse Rate 110 H Respiratory 16 Rate Blood Pressure 121/69 O2 Sat by Pulse 96 Oximetry - Reevaluation(s) Reevaluation #1: 10/20/19 12:00 patient's received ultrasound. After this she became irate, speaking hyperverbal and another language. Would not respond to some Vietnamese. Patient was hitting staff members. Patient was kicking and flailing, hand to be restrained by staff fear for Patient harming herself or others.. IM Benadryl was ordered. She pulled her IV out. 10/20/19 12:16 Reevaluation #2: 10/20/19 12:17 Patient was not given IM Benadryl as then she became alert and oriented, stated that she did not want to be in the emergency department anymore and became completely alert to self. She states that she doesn't feel she needs to be her anymore. At this time patient's mother came to the emergency department. Mother agrees to take the Patient home and this is similar to her previous conversion disorder episodes. I discussed that I still would like to have the Patient evaluated by psych services and mother states that she does not want this and Patient refuses to be seen by psych services and denies any suicidal or homicidal ideations. Patient will be discharged in care of mother. Medical Decision Making - Medical Decision Making Patient is a 34 year old female with history of conversion disorder. She was at [facility] having intake with new counselor. She then had an argument according to [facility] staff, and patient went into a seizure and arrived via EMS. She arrived acting post ictal, and wound respond to nail pressing and pain. She then wound open her eyes and shake her head yes or no in response to questions. IV established and labs obtained. LAbs were unremarkable. During ED stay, patient then became combative towards staff and was shouting in different language. Required multiple staff members to restrain her from harming herself or others. Discussed that patient was to be evaluated by EPS. Patient then sat on the edge of the bed in calm mannor and stated jshe does not need to see EPS and wants to leave. She changed moods and language and behaviour instantaneously. She then became hostile towards staff and myself when questioning this dramatic change in behviour without any medical intervention. Patient mother then arrived and stated she would take the patient home. Discussed withmother that I would like to have EPS see patient, but she cannot be petitioned due to denying suicidal behavior and now alert and oriented. Mother is adament about this being her typical behavior and she will go home with her. At the begining of the visit her stated he wanted nothing done and for her to be discharged, but at that time patient was acting obtunded. - Lab Data Result diagrams: 10/20/19 10:45 10/20/19 10:45 Lab Results 10/20/19 10/20/19 10/20/19 Range/Units 10:45 10:45 10:45 WBC 8.8 (3.8-10.6) k/uL RBC 4.26 (3.80-5.40) m/uL Hgb 13.5 (11.4-16.0) gm/dL Hct 39.5 (34.0-46.0) % MCV 92.8 (80.0-100.0) fL MCH 31.7 (25.0-35.0) pg MCHC 34.1 (31.0-37.0) g/dL RDW 12.4 (11.5-15.5) % Plt Count 282 (150-450) k/uL Neutrophils % 72 % Lymphocytes % 17 % Monocytes % 5 % Eosinophils % 1 % Basophils % 2 % Neutrophils # 6.3 (1.3-7.7) k/uL Lymphocytes # 1.5 (1.0-4.8) k/uL Monocytes # 0.5 (0-1.0) k/uL Eosinophils # 0.1 (0-0.7) k/uL Basophils # 0.2 (0-0.2) k/uL PT 9.8 (9.0-12.0) sec INR 0.9 (<1.2) APTT 24.2 (22.0-30.0) sec Sodium 137 (137-145) mmol/L Potassium 4.9 (3.5-5.1) mmol/L Chloride 107 (98-107) mmol/L Carbon Dioxide 12 L (22-30) mmol/L Anion Gap 18 mmol/L BUN 5 L (7-17) mg/dL Creatinine 0.61 (0.52-1.04) mg/dL Est GFR (CKD-EPI)AfAm >90 (>60 ml/min/1.73 sqM) Est GFR (CKD-EPI)NonAf >90 (>60 ml/min/1.73 sqM) Glucose 90 (74-99) mg/dL POC Glucose (mg/dL) (75-99) mg/dL POC Glu Pr Intern ID Calcium 9.4 (8.4-10.2) mg/dL Total Bilirubin 1.2 (0.2-1.3) mg/dL AST 45 H (14-36) U/L ALT 6 L (9-52) U/L Alkaline Phosphatase 51 (38-126) U/L Troponin I (0.000-0.034) ng/mL Total Protein 8.7 H (6.3-8.2) g/dL Albumin 4.6 (3.5-5.0) g/dL Urine Color Urine Appearance (Clear) Urine pH (5.0-8.0) Ur Specific [place] (1.001-1.035) Urine Protein (Negative) Urine Glucose (UA) (Negative) Urine Ketones (Negative) Urine Blood (Negative) Urine Nitrite (Negative) Urine Bilirubin (Negative) Urine Urobilinogen (<2.0) mg/dL Ur Leukocyte Esterase (Negative) Urine RBC (0-5) /hpf Urine WBC (0-5) /hpf Ur Squamous Epith Cells (0-4) /hpf Urine Mucus (None) /hpf Urine Opiates Screen (NotDetected) Ur Oxycodone Screen (NotDetected) Urine Methadone Screen (NotDetected) Ur Propoxyphene Screen (NotDetected) Ur Barbiturates Screen (NotDetected) U Tricyclic Antidepress (NotDetected) Ur Phencyclidine Scrn (NotDetected) Ur Amphetamines Screen (NotDetected) U Methamphetamines Scrn (NotDetected) U Benzodiazepines Scrn (NotDetected) Urine Cocaine Screen (NotDetected) U Marijuana (THC) Screen (NotDetected) Serum Alcohol <10 mg/dL 10/20/19 10/20/19 10/20/19 Range/Units 10:45 10:52 11:00 WBC (3.8-10.6) k/uL RBC (3.80-5.40) m/uL Hgb (11.4-16.0) gm/dL Hct (34.0-46.0) % MCV (80.0-100.0) fL MCH (25.0-35.0) pg MCHC (31.0-37.0) g/dL RDW (11.5-15.5) % Plt Count (150-450) k/uL Neutrophils % % Lymphocytes % % Monocytes % % Eosinophils % % Basophils % % Neutrophils # (1.3-7.7) k/uL Lymphocytes # (1.0-4.8) k/uL Monocytes # (0-1.0) k/uL Eosinophils # (0-0.7) k/uL Basophils # (0-0.2) k/uL PT (9.0-12.0) sec INR (<1.2) APTT (22.0-30.0) sec Sodium (137-145) mmol/L Potassium (3.5-5.1) mmol/L Chloride (98-107) mmol/L Carbon Dioxide (22-30) mmol/L Anion Gap mmol/L BUN (7-17) mg/dL Creatinine (0.52-1.04) mg/dL Est GFR (CKD-EPI)AfAm (>60 ml/min/1.73 sqM) Est GFR (CKD-EPI)NonAf (>60 ml/min/1.73 sqM) Glucose (74-99) mg/dL POC Glucose (mg/dL) 91 (75-99) mg/dL POC Glu Pr Intern ID Danielle Bingham Calcium (8.4-10.2) mg/dL Total Bilirubin (0.2-1.3) mg/dL AST (14-36) U/L ALT (9-52) U/L Alkaline Phosphatase (38-126) U/L Troponin I 0.016 (0.000-0.034) ng/mL Total Protein (6.3-8.2) g/dL Albumin (3.5-5.0) g/dL Urine Color Urine Appearance (Clear) Urine pH (5.0-8.0) Ur Specific [place] (1.001-1.035) Urine Protein (Negative) Urine Glucose (UA) (Negative) Urine Ketones (Negative) Urine Blood (Negative) Urine Nitrite (Negative) Urine Bilirubin (Negative) Urine Urobilinogen (<2.0) mg/dL Ur Leukocyte Esterase (Negative) Urine RBC (0-5) /hpf Urine WBC (0-5) /hpf Ur Squamous Epith Cells (0-4) /hpf Urine Mucus (None) /hpf Urine Opiates Screen Not Detected (NotDetected) Ur Oxycodone Screen Not Detected (NotDetected) Urine Methadone Screen Not Detected (NotDetected) Ur Propoxyphene Screen Not Detected (NotDetected) Ur Barbiturates Screen Not Detected (NotDetected) U Tricyclic Antidepress Not Detected (NotDetected) Ur Phencyclidine Scrn Not Detected (NotDetected) Ur Amphetamines Screen Not Detected (NotDetected) U Methamphetamines Scrn Not Detected (NotDetected) U Benzodiazepines Scrn Not Detected (NotDetected) Urine Cocaine Screen Not Detected (NotDetected) U Marijuana (THC) Screen Not Detected (NotDetected) Serum Alcohol mg/dL 10/20/19 Range/Units 11:00 WBC (3.8-10.6) k/uL RBC (3.80-5.40) m/uL Hgb (11.4-16.0) gm/dL Hct (34.0-46.0) % MCV (80.0-100.0) fL MCH (25.0-35.0) pg MCHC (31.0-37.0) g/dL RDW (11.5-15.5) % Plt Count (150-450) k/uL Neutrophils % % Lymphocytes % % Monocytes % % Eosinophils % % Basophils % % Neutrophils # (1.3-7.7) k/uL Lymphocytes # (1.0-4.8) k/uL Monocytes # (0-1.0) k/uL Eosinophils # (0-0.7) k/uL Basophils # (0-0.2) k/uL PT (9.0-12.0) sec INR (<1.2) APTT (22.0-30.0) sec Sodium (137-145) mmol/L Potassium (3.5-5.1) mmol/L Chloride (98-107) mmol/L Carbon Dioxide (22-30) mmol/L Anion Gap mmol/L BUN (7-17) mg/dL Creatinine (0.52-1.04) mg/dL Est GFR (CKD-EPI)AfAm (>60 ml/min/1.73 sqM) Est GFR (CKD-EPI)NonAf (>60 ml/min/1.73 sqM) Glucose (74-99) mg/dL POC Glucose (mg/dL) (75-99) mg/dL POC Glu Pr Intern ID Calcium (8.4-10.2) mg/dL Total Bilirubin (0.2-1.3) mg/dL AST (14-36) U/L ALT (9-52) U/L Alkaline Phosphatase (38-126) U/L Troponin I (0.000-0.034) ng/mL Total Protein (6.3-8.2) g/dL Albumin (3.5-5.0) g/dL Urine Color Yellow Urine Appearance Clear (Clear) Urine pH 5.5 (5.0-8.0) Ur Specific [place] 1.018 (1.001-1.035) Urine Protein 1+ H (Negative) Urine Glucose (UA) Negative (Negative) Urine Ketones 1+ H (Negative) Urine Blood Negative (Negative) Urine Nitrite Negative (Negative) Urine Bilirubin Negative (Negative) Urine Urobilinogen <2.0 (<2.0) mg/dL Ur Leukocyte Esterase Negative (Negative) Urine RBC <1 (0-5) /hpf Urine WBC 1 (0-5) /hpf Ur Squamous Epith Cells 1 (0-4) /hpf Urine Mucus Rare H (None) /hpf Urine Opiates Screen (NotDetected) Ur Oxycodone Screen (NotDetected) Urine Methadone Screen (NotDetected) Ur Propoxyphene Screen (NotDetected) Ur Barbiturates Screen (NotDetected) U Tricyclic Antidepress (NotDetected) Ur Phencyclidine Scrn (NotDetected) Ur Amphetamines Screen (NotDetected) U Methamphetamines Scrn (NotDetected) U Benzodiazepines Scrn (NotDetected) Urine Cocaine Screen (NotDetected) U Marijuana (THC) Screen (NotDetected) Serum Alcohol mg/dL 10/20/19 11:21 EKG performed at 1042 shows sinus tachycardia, otherwise normal EKG. Ventricular rate of 1 11 bpm. Intervals 1:30 milliseconds. QS duration is 80 ms. QT QTc is 332/450 ms. - Radiology Data Radiology results: report reviewed US shows viable IUP with heart rate measuring 160 bpm. Disposition Clinical Impression: Conversion disorder, , Aggressive outburst Disposition: HOME SELF-CARE Condition: Good Instructions (If sedation given, give patient instructions): Altered Mental Status (ED) Additional Instructions: Patient advised to follow up with [facility]. Return to the emergency department if any alarming signs or symptoms occur. Is patient prescribed a controlled substance at d/c from ED?: No Referrals: Jaren Skelton MD [Primary Care Provider] - 1-2 days Time of Disposition: 12:19
[2019-10-20 10:55] LABS: Glucose,Whole Blood 91 mg/dL (75-99)
[2019-10-20 11:24] LABS: Appearance,Urine Clear (Clear); Bilirubin,Urine Negative (Negative); Blood,Urine Negative (Negative); Color,Urine Yellow; Glucose,Urine (UA) Negative (Negative); Ketones,Urine 1+ (Negative); Leukocyte Esterase,Urine Negative (Negative); Mucus,Urine Rare /hpf; Nitrite,Urine Negative (Negative); PH, Urine 5.5 (5.0-8.0); Protein,Urine 1+ (Negative); RBC,Urine <1 /hpf (0-5); Specific Gravity,Urine 1.018 (1.001-1.035); Squamous Epithelial Cell,Urine 1 /hpf (0-4); Urobilinogen,Urine <2.0 mg/dL (<2.0)
[2019-10-20 11:26] LABS: ALT 6 U/L (9-52); AST 45 U/L (14-36); African American GFR (CKD) >90 (>60 ml/min/1.73 sqM); Albumin 4.6 g/dL (3.5-5.0); Alcohol <10 mg/dL; Alkaline Phosphatase 51 U/L (38-126); Anion Gap 18 mmol/L; Blood Urea Nitrogen 5 mg/dL (7-17); Calcium 9.4 mg/dL (8.4-10.2); Carbon Dioxide 12 mmol/L (22-30); Chloride 107 mmol/L (98-107); Glucose 90 mg/dL (74-99); Non-African American GFR(CKD) >90 (>60 ml/min/1.73 sqM); Sodium 137 mmol/L (137-145); Total Bilirubin 1.2 mg/dL (0.2-1.3); Total Protein 8.7 g/dL (6.3-8.2)
[2019-10-20 11:31] LABS: Amphetamine Screen,Urine Not Detected (NotDetected); Barbiturate Screen,Urine Not Detected (NotDetected); Benzodiazepines Screen,Urine Not Detected (NotDetected); Cocaine Screen,Urine Not Detected (NotDetected); Methadone Screen, Urine Not Detected (NotDetected); Opiate Screen,Urine Not Detected (NotDetected); Oxycodone Screen, Urine Not Detected (NotDetected); Phencyclidine Screen,Urine Not Detected (NotDetected); Tricyclic Antidepressant,Urine Not Detected (NotDetected); Urn Cannabinoid Scrn Not Detected (NotDetected)
[2019-10-20 11:32] LABS: Potassium 4.9 mmol/L (3.5-5.1)
[2019-10-20 11:41] LABS: Basophils # (A) 0.2 k/uL (0-0.2); Basophils % (A) 2 %; Eosinophils # (A) 0.1 k/uL (0-0.7); Eosinophils % (A) 1 %; HCT 39.5 % (34.0-46.0); HGB 13.5 gm/dL (11.4-16.0); Lymphocytes # (A) 1.5 k/uL (1.0-4.8); Lymphocytes % (A) 17 %; MCH 31.7 pg (25.0-35.0); MCHC 34.1 g/dL (31.0-37.0); MCV 92.8 fL (80.0-100.0); Mean Platelet Volume 8.7; Monocytes # (A) 0.5 k/uL (0-1.0); Monocytes % (A) 5 %; Neutrophils # (A) 6.3 k/uL (1.3-7.7); Neutrophils % (A) 72 %; Platelet Count 282 k/uL (150-450); RBC 4.26 m/uL (3.80-5.40); RDW 12.4 % (11.5-15.5); WBC 8.8 k/uL (3.8-10.6)
--- NOTE | 2019-10-20 11:42 | US ---
EXAMINATION TYPE: US OB limited DATE OF EXAM: 10/20/2019 COMPARISON: US 2019 CLINICAL HISTORY: heart tones, altered mental pt. . heart tones EXAM PERFORMED: Transabdominal (TA) SURVEY Difficult scan due to patient motion HEART RATE: 160 bpm RHYTHM: Normal Exam is limited. IMPRESSION: Limited exam. heart rate detected at 161 bpm.
[2019-10-20 12:04] LABS: INR 0.9 (<1.2); Partial Thromboplastin Time 24.2 sec (22.0-30.0); Prothrombin Time 9.8 sec (9.0-12.0)
== END 2019-10-20 12:27 | disposition home or self-care (01) ==
LOC: EC 10:24
DX: O99.341 Other mental disorders complicating pregnancy, first trimester (principal); F44.9 Dissociative and conversion disorder, unspecified; Z79.899 Other long term (current) drug therapy; Z3A.13 13 weeks gestation of pregnancy
CPT/HCPCS: 99285; 96360; 36415; 93005; 80053; 84484; 85025; 85610; 85730; 81001; 80306; 76815; G0480; 80320

== ENCOUNTER → 2020-04-15 | Outpatient (CLI) | payer OTHER | END | disposition home or self-care (01) | LOC: LABWHC1 11:30 | PROVIDERS: ATTEND Obstetrics & Gynecology | DX: Z11.59 Encounter for screening for other viral diseases (principal) | CPT/HCPCS: 87635 ==

== ENCOUNTER 2020-04-20 06:04 | Inpatient (IN) | payer OTHER ==
[2020-04-20] MEDS ORDERED: CARBOPROST TROMETHAMINE 250 MCG/ML 1 ML AMP IM PRN (06:22)
[2020-04-20] MEDS ORDERED: LACTATED RINGERS 1,000 ML IV SCH (06:22)
[2020-04-20] MEDS ORDERED: OXYTOCIN 10 UNIT/ML 1 ML VIAL IM PRN (06:22)
[2020-04-20] MEDS ORDERED: OXYTOCIN 30 UNITS/500 ML NS 30 UNIT in SALINE 1 500ML.BAG IV SCH (06:22)
[2020-04-20] MEDS ORDERED: LIDOCAINE 0.5% (PF) 5 MG/ML (50 ML SDV) SQ PRN (06:22)
[2020-04-20] MEDS ORDERED: TERBUTALINE 1 MG/ML VIAL SQ PRN (06:22)
[2020-04-20] MEDS ORDERED: METHYLERGONOVINE 0.2 MG/ML 1 ML AMP IM PRN (06:22)
[2020-04-20 06:39] LABS: Basophils % (A) 0 %; Eosinophils # (A) 0.2 k/uL (0-0.7); Eosinophils % (A) 1 %; HCT 41.2 % (34.0-46.0); HGB 13.7 gm/dL (11.4-16.0); Lymphocytes % (A) 16 %; MCH 29.8 pg (25.0-35.0); MCHC 33.1 g/dL (31.0-37.0); MCV 89.8 fL (80.0-100.0); Mean Platelet Volume 8.3; Monocytes # (A) 0.5 k/uL (0-1.0); Monocytes % (A) 4 %; Neutrophils # (A) 9.5 k/uL (1.3-7.7); Neutrophils % (A) 76 %; Platelet Count 230 k/uL (150-450); RBC 4.59 m/uL (3.80-5.40); RDW 14.3 % (11.5-15.5); WBC 12.4 k/uL (3.8-10.6)
[2020-04-20] MEDS ORDERED: ACETAMINOPHEN TAB 325 MG TAB PO PRN (07:20)
[2020-04-20] MEDS ORDERED: ZOLPIDEM 5 MG TAB PO PRN (07:20)
[2020-04-20] MEDS ORDERED: diphenhydrAMINE 50 MG/ML 1 ML VIAL IVP PRN ×2 (07:20)
[2020-04-20] MEDS ORDERED: BENZOCAINE/MENTHOL SPRAY 1 GM/SPRAY AEROSOL TOPICAL PRN (07:20)
[2020-04-20] MEDS ORDERED: SIMETHICONE 80 MG CHEWABLE PO PRN (07:20)
[2020-04-20] MEDS ORDERED: diphenhydrAMINE 25 MG CAP PO PRN (07:20)
[2020-04-20] MEDS ORDERED: WITCH HAZEL 1 EACH MED..PAD TOPICAL PRN (07:20)
[2020-04-20] MEDS ORDERED: LANOLIN CREAM 5 GM TUBE TOPICAL PRN (07:20)
[2020-04-20] MEDS ORDERED: HYDROCORTISONE 2.5% RECTAL CREAM 30 GM TUBE RECTAL PRN (07:20)
[2020-04-20] MEDS ORDERED: diphenhydrAMINE 50 MG CAP PO PRN (07:20)
--- NOTE | 2020-04-20 07:25 | P.HPOB ---
History of Present Illness H&P Date: 04/20/20 Chief Complaint: Normal labor 35-year-old presents at 39 weeks and 1 day in labor. Her cervix was 8-9 cm dilated, 90% effaced, and -2 station. She is roxanne every 2 minutes. heart tones 130 with moderate variability and reactive. Review of Systems All systems: negative Constitutional: Denies chills, Denies fever Eyes: denies blurred vision, denies pain Ears, nose, mouth and throat: Denies headache, Denies sore throat Cardiovascular: Denies chest pain, Denies shortness of breath Respiratory: Denies cough Gastrointestinal: Denies abdominal pain, Denies diarrhea, Denies nausea, Denies vomiting Genitourinary: Denies dysuria, Denies hematuria Musculoskeletal: Denies myalgias Integumentary: Denies pruritus, Denies rash Neurological: Denies numbness, Denies weakness Psychiatric: Denies anxiety, Denies depression Endocrine: Denies fatigue, Denies weight change Past Medical History Past Medical History: Seizure Disorder Additional Past Medical History / Comment(s): per - conversion disorder. pseudoseizures. Obstetric history: She has had 3 previous vaginal deliveries and 2 spontaneous abortions. This is her sixth . She's had care with me since the first trimester. Blood type is O+, antibodies negative, rubella immune, hepatitis B-, GBS negative, HIV nonreactive, RPR nonreactive. She does have a history of some pseudoseizures brought on by anxiety and stress. History of Any Multi-Drug Resistant Organisms: None Reported Past Surgical History: No Surgical Hx Reported Past Anesthesia/Blood Transfusion Reactions: No Reported Reaction Past Psychological History: Anxiety, Depression Additional Psychological History / Comment(s): not medicated during preg Smoking Status: Never smoker Past Alcohol Use History: Occasional Past Drug Use History: None Reported - Past Family History Mother Family Medical History: No Reported History Medications and Allergies Home Medications Medication Instructions Recorded Confirmed Type Ergocalciferol [Vitamin D2 50,000 unit PO Q7D 08/27/19 04/20/20 History (DRISDOL)] Vitamin Plus Low Iron 1 tab PO DAILY 10/20/19 04/20/20 History Allergies Allergy/AdvReac Type Severity Reaction Status Date / Time No Known Allergies Allergy Verified 04/20/20 06:21 Exam Osteopathic Statement: *. No significant issues noted on an osteopathic structural exam other than those noted in the History and Physical/Consult. Vital Signs Temp Pulse Resp BP Pulse Ox 04/20/20 07:05 98 F 83 16 140/71 99 04/20/20 06:34 96.7 F L 98 18 134/86 Intake and Output 04/19/20 04/20/20 04/20/20 22:59 06:59 14:59 Other: Weight 89.358 kg Heart: Regular rate and rhythm Lungs: Clear to auscultation bilaterally Abdomen: Soft, nontender Extremities: Negative Homans sign Results Result Diagrams: 04/20/20 06:25 Abnormal Lab Results - Last 24 Hours (Table) 04/20/20 Range/Units 06:25 WBC 12.4 H (3.8-10.6) k/uL Neutrophils # 9.5 H (1.3-7.7) k/uL Assessment and Plan (1) Normal labor Current Visit: Yes Status: Acute Code(s): O80 - ENCOUNTER FOR FULL-TERM UNCOMPLICATED DELIVERY; Z37.9 - OUTCOME OF DELIVERY, UNSPECIFIED SNOMED Code(s): 05756279 Plan: 1. Admit to family place 2. Expectant management 3. Anticipate normal vaginal delivery
--- NOTE | 2020-04-20 07:27 | P.PROBDLV ---
Vaginal Delivery Note - . Vaginal Delivery Note: 35-year-old presents at 39 weeks and 1 day in labor. Her cervix was 8-9 cm dilated, 90% effaced, and -2 station. She is roxanne every 2 minutes. heart tones 130 with moderate variability and reactive. Amniotomy was performed and meconium stained fluid noted. At 6:50 AM she was completely dilated. She pushed, and delivered a viable male over intact perineum at 6:56 AM. Head delivered OA, anterior shoulder delivered gentle downward guidan ce followed by posterior shoulder and rest of body. Nose and mouth bulb suctioned, cord clamped and cut, infant placed on mother's abdomen. Apgars 9, 9, weight 6 lbs. 15 oz. Placenta delivered spontaneous a, intact with three- vessel cord at 7 AM. Vagina, cervix, and perineum were inspected. No lacerations noted. Estimated blood loss 250 mL. Mother and baby in stable condition.
[2020-04-20] MEDS ORDERED: OXYTOCIN 20 UNITS/1000 ML NS 1,000 ML IV SCH (07:30)
[2020-04-20] MEDS: SENNOSIDES-DOCUSATE SODIUM 1 EACH TAB PO SCH ×2 (09:18→20:39)
[2020-04-20] MEDS: IBUPROFEN 600 MG TAB PO PRN (09:19)
[2020-04-21 06:15] LABS: Basophils % (A) 0 %; Eosinophils # (A) 0.1 k/uL (0-0.7); Eosinophils % (A) 1 %; HCT 37.5 % (34.0-46.0); HGB 12.7 gm/dL (11.4-16.0); Lymphocytes # (A) 1.9 k/uL (1.0-4.8); Lymphocytes % (A) 19 %; MCH 30.7 pg (25.0-35.0); MCHC 33.9 g/dL (31.0-37.0); MCV 90.5 fL (80.0-100.0); Mean Platelet Volume 8.7; Monocytes # (A) 0.4 k/uL (0-1.0); Monocytes % (A) 4 %; Neutrophils # (A) 7.6 k/uL (1.3-7.7); Neutrophils % (A) 74 %; Platelet Count 226 k/uL (150-450); RBC 4.14 m/uL (3.80-5.40); RDW 14.5 % (11.5-15.5); WBC 10.3 k/uL (3.8-10.6)
--- NOTE | 2020-04-21 07:13 | P.DS ---
Providers Date of admission: 04/20/20 06:04 Expected date of discharge: 04/21/20 Attending physician: Liliana Mcneil Primary care physician: Stated None - Discharge Diagnosis(es) (1) Normal labor Current Visit: Yes Status: Resolved (2) Normal vaginal delivery Current Visit: Yes Status: Acute Hospital Course: Patient presented in active labor. She underwent a normal vaginal delivery. Her course was uncomplicated. She'll be discharged home day #1 in stable condition to follow-up with me in 6 weeks. Plan - Discharge Summary New Discharge Prescriptions: No Action Ergocalciferol [Vitamin D2 (DRISDOL)] 50,000 unit PO Q7D Vitamin Plus Low Iron 1 tab PO DAILY Discharge Medication List Ergocalciferol [Vitamin D2 (DRISDOL)] 50,000 unit PO Q7D 08/27/19 [History] Vitamin Plus Low Iron 1 tab PO DAILY 10/20/19 [History]
[2020-04-21] MEDS: SENNOSIDES-DOCUSATE SODIUM 1 EACH TAB PO SCH (08:26)
[2020-04-21 08:50] VITALS: BP 106/56; PULSE 87; RESP 16; TEMP 98.2
[2020-04-21] MEDS ORDERED: Rhogam IMMUNE GLOBULIN 1,500 UNIT/1 ML IM ONE (10:08)
[2020-04-21] MEDS: IBUPROFEN 600 MG TAB PO PRN (10:13)
== END 2020-04-21 10:20 | disposition home or self-care (01) | DRG 806 ==
LOC: 4FBP 06:04
PROVIDERS: ADMIT Obstetrics & Gynecology; ATTEND Obstetrics & Gynecology
PROC: 10E0XZZ Delivery of Products of Conception, External Approach (ICD-10-PCS; principal; 2020-04-20)
PROC: 3E0234Z Introduction of Serum, Toxoid and Vaccine into Muscle, Percutaneous Approach (ICD-10-PCS; 2020-04-21)
DX: O77.0 Labor and delivery complicated by meconium in amniotic fluid (principal); O99.354 Diseases of the nervous system complicating childbirth; Z37.0 Single live birth; F44.5 Conversion disorder with seizures or convulsions; O99.344 Other mental disorders complicating childbirth; F32.9 Major depressive disorder, single episode, unspecified; F41.9 Anxiety disorder, unspecified; O26.893 Other specified pregnancy related conditions, third trimester; Z67.41 Type O blood, Rh negative; Z3A.39 39 weeks gestation of pregnancy; Z79.899 Other long term (current) drug therapy
CPT/HCPCS: 85025; 85461; 86850; 86880; 86900; 86901

== ENCOUNTER 2020-04-28 15:50 | Observation (INO) | payer OTHER ==
[2020-04-28] MEDS ORDERED: MAGNESIUM SULFATE-WATER PMX 4 GM in WATER FOR INJECTION 1 100ML.BAG IVPB ONE (16:15)
[2020-04-28 16:48] LABS: Basophils % (A) 1 %; Eosinophils # (A) 0.2 k/uL (0-0.7); Eosinophils % (A) 2 %; HCT 39.3 % (34.0-46.0); HGB 12.7 gm/dL (11.4-16.0); Lymphocytes # (A) 1.3 k/uL (1.0-4.8); Lymphocytes % (A) 20 %; MCHC 32.3 g/dL (31.0-37.0); MCV 89.8 fL (80.0-100.0); Monocytes # (A) 0.4 k/uL (0-1.0); Monocytes % (A) 6 %; Neutrophils # (A) 4.7 k/uL (1.3-7.7); Neutrophils % (A) 70 %; Platelet Count 276 k/uL (150-450); RBC 4.37 m/uL (3.80-5.40); RDW 13.8 % (11.5-15.5); WBC 6.7 k/uL (3.8-10.6)
--- NOTE | 2020-04-28 16:56 | P.HPOB ---
History of Present Illness H&P Date: 04/28/20 Chief Complaint: headache 35-year-old presents 8 days with a severe headache and increased edema in her feet. She called the office on assented in to triage for evaluation. Her blood pressures were quite elevated up to 180/100. In suspecting preeclampsia and we'll admit her for magnesium sulfate prophylaxis. Preeclamptic labs were also drawn. Review of Systems All systems: negative Constitutional: Denies chills, Denies fever Eyes: denies blurred vision, denies pain Ears, nose, mouth and throat: Reports headache, Denies sore throat Cardiovascular: Denies chest pain, Denies shortness of breath Respiratory: Denies cough Gastrointestinal: Denies abdominal pain, Denies diarrhea, Denies nausea, Denies vomiting Genitourinary: Denies dysuria, Denies hematuria Musculoskeletal: Denies myalgias Integumentary: Denies pruritus, Denies rash Neurological: Denies numbness, Denies weakness Psychiatric: Denies anxiety, Denies depression Endocrine: Denies fatigue, Denies weight change Past Medical History Past Medical History: Seizure Disorder Additional Past Medical History / Comment(s): per - conversion disorder. pseudoseizures. Obstetric history: She has had 3 previous vaginal deliveries and 2 spontaneous abortions. This is her sixth . She's had care with me since the first trimester. Blood type is O+, antibodies negative, rubella immune, hepatitis B-, GBS negative, HIV nonreactive, RPR nonreactive. She does have a history of some pseudoseizures brought on by anxiety and stress. History of Any Multi-Drug Resistant Organisms: None Reported Past Surgical History: No Surgical Hx Reported Past Anesthesia/Blood Transfusion Reactions: No Reported Reaction Past Psychological History: Anxiety, Depression Additional Psychological History / Comment(s): not medicated during preg Smoking Status: Never smoker Past Alcohol Use History: Occasional Past Drug Use History: None Reported - Past Family History Mother Family Medical History: No Reported History Medications and Allergies Home Medications Medication Instructions Recorded Confirmed Type Vitamin Plus Low Iron 1 tab PO DAILY 10/20/19 04/28/20 History Ibuprofen [Motrin] 600 mg PO Q6HR PRN #30 tab 04/21/20 04/28/20 Rx Allergies Allergy/AdvReac Type Severity Reaction Status Date / Time No Known Allergies Allergy Verified 04/28/20 15:53 Exam Osteopathic Statement: *. No significant issues noted on an osteopathic structural exam other than those noted in the History and Physical/Consult. Vital Signs Temp Pulse Resp BP 04/28/20 15:57 55 L 04/28/20 15:54 98.5 F 57 L 16 180/90 Intake and Output 04/28/20 04/28/20 04/28/20 06:59 14:59 22:59 Other: Weight 86.183 kg Heart: Regular rate and rhythm Lungs: Clear to auscultation bilaterally Abdomen: Soft, nontender, fundus firm Extremities: Negative Homans sign, 2+ bilateral pedal edema, no edema in the lower extremities other than the feet. 2+/4 DTR Results Result Diagrams: 04/28/20 16:30 Assessment and Plan (1) Pre-eclampsia, Current Visit: Yes Status: Acute Code(s): O14.95 - UNSPECIFIED PRE- ECLAMPSIA, COMPLICATING THE PUERPERIUM SNOMED Code(s): 796817165 Plan: 1. Admit to family place 2. Magnesium sulfate 4 g bolus then 2 g an hour 3. Preeclamptic workup 4. I had a long discussion with the patient and her regarding what preeclampsia is, however it's treated, and possible risks. Patient and her expressed understanding.
[2020-04-28 17:00] LABS: ALT 83 U/L (4-34); AST 40 U/L (14-36); African American GFR (CKD) >90 (>60 ml/min/1.73 sqM); Appearance,Urine Clear (Clear); Bilirubin,Urine Negative (Negative); Blood Urea Nitrogen 16 mg/dL (7-17); Blood,Urine Negative (Negative); Color,Urine Yellow; Glucose,Urine (UA) Negative (Negative); Ketones,Urine Negative (Negative); LDH 650 U/L (313-618); Leukocyte Esterase,Urine Negative (Negative); Nitrite,Urine Negative (Negative); Non-African American GFR(CKD) >90 (>60 ml/min/1.73 sqM); PH, Urine 7.5 (5.0-8.0); Protein,Urine Negative (Negative); Specific Gravity,Urine 1.018 (1.001-1.035); Uric Acid 7.7 mg/dL (3.7-7.4); Urobilinogen,Urine <2.0 mg/dL (<2.0)
[2020-04-28] MEDS: MAGNESIUM SULFATE-WATER PMX 20 GM in WATER FOR INJECTION 1 500ML.BAG IV SCH (17:06)
[2020-04-28 17:10] LABS: Creatinine,Urine Random 82.7 mg/dL
[2020-04-28] MEDS: ACETAMINOPHEN TAB 325 MG TAB PO PRN ×2 (17:10→21:01)
[2020-04-28 17:11] LABS: Protein/Creatinine Ratio,Urine 0.11
[2020-04-28 17:26] LABS: Glucose,Whole Blood 111 mg/dL (75-99)
--- NOTE | 2020-04-28 17:50 | P.PN ---
Progress Note - Text Progress Note Date: 04/28/20 Called to see patient I nursing staff due to "seizure". Patient states she was able to hear the nurses talking to her during her seizure but was just unable to respond to them initially when asked her to squeeze her finger. Nurses state that she was shaking fairly violently and did even sit up into the bed when she was shaking. The whole episode lasted approximately 1 minute. Currently she states she feels fine and states that the pseudoseizures are improved from what they previously had been. She only complains of a headache at this time which is the same as when she arrived to the hospital. She just received Tylenol. Lab work was reviewed and her protein is negative but she does have some elevated liver enzymes consistent with preeclampsia. We will repeat labs in the morning. We will obtain stat electrolytes now just to make sure that seizure activity as nothing to do with an electrolyte imbalance.
[2020-04-28 18:46] LABS: Potassium 4.2 mmol/L (3.5-5.1)
[2020-04-29] MEDS: ACETAMINOPHEN TAB 325 MG TAB PO PRN ×3 (01:07→15:22)
[2020-04-29] MEDS: MAGNESIUM SULFATE-WATER PMX 20 GM in WATER FOR INJECTION 1 500ML.BAG IV SCH ×2 (03:22→13:05)
[2020-04-29 06:57] LABS: Basophils % (A) 0 %; Eosinophils # (A) 0.2 k/uL (0-0.7); Eosinophils % (A) 3 %; HCT 42.2 % (34.0-46.0); HGB 13.3 gm/dL (11.4-16.0); Lymphocytes # (A) 1.4 k/uL (1.0-4.8); Lymphocytes % (A) 23 %; MCH 28.2 pg (25.0-35.0); MCHC 31.5 g/dL (31.0-37.0); MCV 89.8 fL (80.0-100.0); Mean Platelet Volume 7.7; Monocytes # (A) 0.4 k/uL (0-1.0); Monocytes % (A) 6 %; Neutrophils % (A) 66 %; Platelet Count 285 k/uL (150-450); RBC 4.71 m/uL (3.80-5.40); RDW 13.7 % (11.5-15.5); WBC 6.1 k/uL (3.8-10.6)
[2020-04-29 07:10] LABS: ALT 77 U/L (4-34); AST 37 U/L (14-36); African American GFR (CKD) >90 (>60 ml/min/1.73 sqM); Blood Urea Nitrogen 12 mg/dL (7-17); Non-African American GFR(CKD) >90 (>60 ml/min/1.73 sqM); Uric Acid 7.7 mg/dL (3.7-7.4)
--- NOTE | 2020-04-29 07:35 | P.MSEPDOC ---
Presenting Problems - Arrival Data Date of Arrival on Unit: 04/28/20 Time of Arrival on Unit: 16:00 Mode of Transport: Ambulatory - Complaint OB-Reason for Admission/Chief Complaint: Headache Comment: headache for the past 24 hours Medical History - Information : 4 Para: 4 Term: 4 : 0 Abortions: Spontaneous or Elective: 0 Number of Living Children: 4 - Gestational Age Gestational Age by TONY (wks/days): 41 Weeks and 2 Days Review of Systems - Review of Systems Constitutional: No problems Breast: No problems ENT: No problems Cardiovascular: No problems Respiratory: No problems Gastrointestinal: No problems Genitourinary: No problems Musculoskeletal: No problems Neurological: No problems Skin: No problems Vital Signs - Temperature Temperature: 97.6 F Temperature Source: Temporal Artery Scan - Pulse Right Brachial Pulse Rate: 68 Pulse Assessment Method: Automatic Cuff - Respirations Respiratory Rate: 17 Oxygen Delivery Method: Room Air - Blood Pressure Right Arm Blood Pressure: 137/68 Blood Pressure Mean: 91 Blood Pressure Source: Automatic Cuff Medical Screen Scoring (Pre) - Maternal Vital Signs Maternal Temperature: N/A Maternal Blood Pressure: Diastolic > 89 = 1 Signs of Preeclampsia: Headache = 1 - Total Score - Baby A Total Score - Baby A: 2 - Total Score - Baby B Total Score - Baby B: 2 - Total Score - Baby C Total Score - Baby C: 2 - Level of Risk - Baby A Level of Risk - Baby A: Low (0-5) - Level of Risk - Baby B Level of Risk - Baby B: Low (0-5) - Level of Risk - Baby C Level of Risk - Baby C: Low (0-5) - Pain Assessment Pain Location and Character: Head Pain Scale Used: Numeric (1 - 10) Pain Intensity: 10 Pain Management Goal: 3 Pain Description: *Acute, Aching Pain Frequency: Daily Pain Duration Units: Hours Pain Behavior: Vocalization Pain Aggravating Factors: Activity Physician Notification (Pre) - Physician Notified Physician Notified Date: 04/28/20 Physician Notified Time: 16:20 New Order Received: Yes (pt admited) Disposition - Disposition OB Disposition: Admit Discharge Date: 04/28/20 Discharge Time: 16:20 I agree with the RN Medical Screening Exam: Yes Risk & Benefit of care provided described in d/c instruction: Yes Diagnosis: UNSPECIFIED PRE-ECLAMPSIA, COMPLICATING THE PUERPERIUM
[2020-04-29] MEDS ORDERED: LABETALOL 200 MG TAB PO STA (12:47)
--- NOTE | 2020-04-29 12:53 | P.PN ---
Progress Note - Text Progress Note Date: 04/29/20 Pt seen and examined. She had a pseudoseizure yesterday afternoon. Labs improved this morning but liver enzymes are still elevated. Her BPs are better but still elevated. I am going to start labetalol 200mg bid today. Denies N/V, F/C, CP, SOB or calf pain. She does still have a headache. Tylenol takes the headache from 8 to 5 on the pain scale. HEr feet are no longer swollen and reflexes are 1+
[2020-04-29] MEDS: LABETALOL 200 MG TAB PO SCH (21:12)
[2020-04-30 04:26] VITALS: TEMP 98.2
[2020-04-30 06:04] LABS: Basophils % (A) 1 %; Eosinophils # (A) 0.1 k/uL (0-0.7); Eosinophils % (A) 2 %; HCT 41.3 % (34.0-46.0); Lymphocytes # (A) 1.5 k/uL (1.0-4.8); Lymphocytes % (A) 25 %; MCH 28.4 pg (25.0-35.0); MCHC 31.6 g/dL (31.0-37.0); MCV 89.9 fL (80.0-100.0); Mean Platelet Volume 7.5; Monocytes # (A) 0.3 k/uL (0-1.0); Monocytes % (A) 6 %; Neutrophils # (A) 3.9 k/uL (1.3-7.7); Neutrophils % (A) 66 %; Platelet Count 295 k/uL (150-450); RBC 4.59 m/uL (3.80-5.40); RDW 13.6 % (11.5-15.5)
[2020-04-30 06:10] LABS: ALT 62 U/L (4-34); AST 38 U/L (14-36); African American GFR (CKD) >90 (>60 ml/min/1.73 sqM); Blood Urea Nitrogen 9 mg/dL (7-17); LDH 567 U/L (313-618); Non-African American GFR(CKD) >90 (>60 ml/min/1.73 sqM); Uric Acid 8.8 mg/dL (3.7-7.4)
[2020-04-30] MEDS: LABETALOL 200 MG TAB PO SCH (08:54)
--- NOTE | 2020-04-30 11:21 | P.DS ---
Providers Date of admission: 04/28/20 16:15 Expected date of discharge: 04/30/20 Attending physician: Liliana Mcneil Primary care physician: Liliana Mcneil [facility] Course: Patient is seen and evaluated post- day 2. Her vital signs are currently stable and she is afebrile. She voices no complaints and is requesting discharged home today. She was Yesterday and was on mag sulfate for 24 hours due to preeclampsia with possible early help. Her liver enzymes had been elevated before coming down. They were not however 4 times normal size is difficult to say if she was truly an help syndrome. She has also been getting Tylenol which will be discontinued and changed over to Motrin as Tylenol is excreted through the liver and could increase theoretically her liver enzymes. Assuming she has no other competitions. Morning into the afternoon we will land discharged to home today prescription for Motrin has been forward to her pharmacy if she tolerates that change director from the Tylenol. On physical exam vital signs are stable and afebrile. Heart regular, lungs clear, extremities without pain. She is having no difficulties and breast- feeding. Abdomen is soft uterus is firm and lochia is reported light. Her deep tendon reflexes currently are +2 out of 4 and she has no other signs or symptoms of preeclampsia. Assessment day 2. Plan discharged home follow up on Saturday or Saturday for blood pressure check. She will continue labetalol 2 or milligrams twice daily and Motrin for pain relief. Should she have any signs or symptoms of pre-eclampsia she is to notify her our office or report immediately back to labor and delivery or the emergency room. All the questions are answered for this time and she is stable for discharge this time. Patient Condition at Discharge: Good Plan - Discharge Summary New Discharge Prescriptions: New Ibuprofen [Motrin] 600 mg PO Q6HR PRN #30 tab PRN Reason: Pain No Action Vitamin Plus Low Iron 1 tab PO DAILY Ibuprofen [Motrin] 600 mg PO Q6HR PRN #30 tab PRN Reason: Mild Pain Or Fever >= 100.5 Discharge Medication List Vitamin Plus Low Iron 1 tab PO DAILY 10/20/19 [History] Ibuprofen [Motrin] 600 mg PO Q6HR PRN #30 tab 04/21/20 [Rx] Ibuprofen [Motrin] 600 mg PO Q6HR PRN #30 tab 04/30/20 [Rx] Follow up Appointment(s)/Referral(s): Liliana Mcneil DO [Primary Care Provider] - 3 Days Activity/Diet/Wound Care/Special Instructions: No heavy lifting, limit stairs and driving, and pelvic rest. If any high temperatures, heavy bleeding, or severe pain call my office. If she begins to have any severe headaches not relieved by Motrin and Tylenol, epigastric pain, visual disturbances or other signs or symptoms of preeclampsia she is to return to the emergency room or labor and delivery immediately. She'll follow up with Dr. Mcneil on Saturday or Saturday for blood pressure check and reevaluation. Discharge Disposition: HOME SELF-CARE
[2020-04-30] MEDS ORDERED: IBUPROFEN 600 MG TAB PO SCH (13:00)
[2020-04-30 13:01] VITALS: PULSE 65; RESP 20
[2020-04-30 13:09] VITALS: BP 132/65
== END 2020-04-30 14:30 | disposition home or self-care (01) ==
LOC: FBPOP 15:50 → 4FBP 16:15 → INTOOBSV 16:15 → UNDODISIN 04-30 14:30
PROVIDERS: ADMIT Obstetrics & Gynecology; ATTEND Obstetrics & Gynecology
DX: O14.95 Unspecified pre-eclampsia, complicating the puerperium (principal); O99.355 Diseases of the nervous system complicating the puerperium; F44.5 Conversion disorder with seizures or convulsions; Z86.59 Personal history of other mental and behavioral disorders; O99.345 Other mental disorders complicating the puerperium; F41.9 Anxiety disorder, unspecified; F32.9 Major depressive disorder, single episode, unspecified
CPT/HCPCS: 82570; 80051; 84156; 82565 ×3; 83615 ×2; 84450 ×3; 84460 ×3; 84520 ×3; 84550 ×3; 85025 ×3; 81003; G0378 ×3; J3475 ×3

== ENCOUNTER 2022-06-13 14:51 | Emergency (ER) | payer OTHER ==
--- NOTE | 2022-06-13 14:59 | ED ---
General Adult HPI - General Chief complaint: Seizure Stated complaint: SEIZURE Time Seen by Provider: 06/13/22 14:56 Source: patient, EMS, RN notes reviewed - History of Present Illness Initial comments: Patient is a 37-year-old -[place] female presents the emergency room via EMS at the direction of her primary care provider. She was at her primary care provider's office today to follow-up on a pseudoseizure event that happened earlier in May when she had another event where she began to have bizarre shaking activity that was only in her extremities and occasionally in her neck but not consistently. She had no extraparametal affects to her facial features or twitching of her face at all during the events. She is minimally responsive to verbal cues both when shaking is occurring and when she is resting comfortably with her eyes open. She does report that she is following with CURRENCY EXAMINER in regards to her IUD with some irritation in her vaginal area at times and is currently prescribed antibiotic therapy for UTI but has not picked the medication up yet. She denies any dysuria, hematuria, flank or pelvic pain or pressure at this time. She has a past medical history of pseudoseizure is not on seizure medication, conversion disorder, depression and anxiety. - Related Data Home Medications Medication Instructions Recorded Confirmed Vitamin Plus Low Iron 1 tab PO DAILY 10/20/19 04/28/20 Previous Rx's Medication Instructions Recorded Ibuprofen [Motrin] 600 mg PO Q6HR PRN #30 tab 04/21/20 Ibuprofen [Motrin] 600 mg PO Q6HR PRN #30 tab 04/30/20 Labetalol [Trandate] 200 mg PO BID #60 tablet 04/30/20 Allergies Allergy/AdvReac Type Severity Reaction Status Date / Time No Known Allergies Allergy Verified 04/28/20 15:53 Review of Systems ROS Statement: Those systems with pertinent positive or pertinent negative responses have been documented in the HPI. ROS Other: All systems not noted in ROS Statement are negative. Past Medical History Past Medical History: Seizure Disorder Additional Past Medical History / Comment(s): per - conversion disorder. pseudoseizures. Obstetric history: She has had 3 previous vaginal deliveries and 2 spontaneous abortions. This is her sixth . She's had care with me since the first trimester. Blood type is O+, antibodies negative, rubella immune, hepatitis B-, GBS negative, HIV nonreactive, RPR nonreactive. She does have a history of some pseudoseizures brought on by anxiety and stress. History of Any Multi-Drug Resistant Organisms: None Reported Past Surgical History: No Surgical Hx Reported Past Anesthesia/Blood Transfusion Reactions: No Reported Reaction Past Psychological History: Anxiety, Depression Additional Psychological History / Comment(s): not medicated during preg Past Alcohol Use History: Occasional Past Drug Use History: None Reported - Past Family History Mother Family Medical History: No Reported History General Exam General appearance: alert (Exam conducted after additional pseudo seizure activity), in no apparent distress Head exam: Present: atraumatic, normocephalic, normal inspection Eye exam: Present: normal appearance, PERRL, EOMI. Absent: scleral icterus, conjunctival injection, periorbital swelling ENT exam: Present: normal exam, mucous membranes moist Neck exam: Present: normal inspection. Absent: tenderness, meningismus, lymphadenopathy Respiratory exam: Present: normal lung sounds bilaterally. Absent: respiratory distress, wheezes, rales, rhonchi, stridor Cardiovascular Exam: Present: regular rate, normal rhythm, normal heart sounds. Absent: systolic murmur, diastolic murmur, rubs, gallop, clicks GI/Abdominal exam: Present: soft, normal bowel sounds. Absent: distended, tenderness, guarding, rebound, rigid Extremities exam: Present: normal inspection, full ROM, normal capillary refill. Absent: tenderness, pedal edema, joint swelling, calf tenderness Back exam: Present: normal inspection Neurological exam: Present: alert, oriented X3, CN II-XII intact Psychiatric exam: Present: flat affect Skin exam: Present: warm, dry, intact, normal color. Absent: rash Course Vital Signs 06/13/22 15:00 Temperature 98.7 F Pulse Rate 78 Respiratory 16 Rate Blood Pressure 134/72 O2 Sat by Pulse 99 Oximetry Medical Decision Making - Medical Decision Making Abnormal limb shaking consistent with pseudo-seizure however will check CT the brain to rule out nausea cerebral event. Will check CBC, CMP along with urinalysis drug screen alcohol level and lactic acid level. Seizure pads placed on bed railing. Currently resting comfortably without any extra limb movement. Initial extremity shaking upon arrival with EMS self-limiting without intervention. Laboratory studies overall stable elevated lactic acid noted however currently being treated for UTI by her FRAMING SPECIALIST. Resting comfortably in bed at this time. Reversing with family member without any abnormal activity. CT of the brain without any intracranial processes. Will discharge patient home with follow-up with her primary care provider along with neurology for outpatient workup. Encouraged completion of antibiotic therapy for urinary tract infection. Case discussed with Dr. Ramirez. - Lab Data Result diagrams: 06/13/22 16:00 06/13/22 16:00 Lab Results 06/13/22 06/13/22 06/13/22 Range/Units 16:00 16:00 16:00 WBC 7.9 (3.8-10.6) k/uL RBC 4.44 (3.80-5.40) m/uL Hgb 14.1 (11.4-16.0) gm/dL Hct 41.8 (34.0-46.0) % MCV 94.3 (80.0-100.0) fL MCH 31.8 (25.0-35.0) pg MCHC 33.7 (31.0-37.0) g/dL RDW 11.8 (11.5-15.5) % Plt Count 277 (150-450) k/uL MPV 8.3 Neutrophils % 76 % Lymphocytes % 16 % Monocytes % 4 % Eosinophils % 2 % Basophils % 0 % Neutrophils # 6.0 (1.3-7.7) k/uL Lymphocytes # 1.3 (1.0-4.8) k/uL Monocytes # 0.3 (0-1.0) k/uL Eosinophils # 0.1 (0-0.7) k/uL Basophils # 0.0 (0-0.2) k/uL Sodium 137 (137-145) mmol/L Potassium 4.3 (3.5-5.1) mmol/L Chloride 107 (98-107) mmol/L Carbon Dioxide 19 L (22-30) mmol/L Anion Gap 11 mmol/L BUN 9 (7-17) mg/dL Creatinine 0.75 (0.52-1.04) mg/dL Est GFR (CKD-EPI)AfAm >90 (>60 ml/min/1.73 sqM) Est GFR (CKD-EPI)NonAf >90 (>60 ml/min/1.73 sqM) Glucose 82 (74-99) mg/dL Plasma Lactic Acid Reza 2.7 H* (0.7-2.0) mmol/L Calcium 9.3 (8.4-10.2) mg/dL Magnesium 1.5 L (1.6-2.3) mg/dL Total Bilirubin 0.3 (0.2-1.3) mg/dL AST 17 (14-36) U/L ALT 12 (4-34) U/L Alkaline Phosphatase 60 (38-126) U/L Total Protein 8.2 (6.3-8.2) g/dL Albumin 4.5 (3.5-5.0) g/dL Urine Color Urine Appearance (Clear) Urine pH (5.0-8.0) Ur Specific [place] (1.001-1.035) Urine Protein (Negative) Urine Glucose (UA) (Negative) Urine Ketones (Negative) Urine Blood (Negative) Urine Nitrite (Negative) Urine Bilirubin (Negative) Urine Urobilinogen (<2.0) mg/dL Ur Leukocyte Esterase (Negative) Urine RBC (0-5) /hpf Urine WBC (0-5) /hpf Ur Squamous Epith Cells (0-4) /hpf Urine Mucus (None) /hpf Urine Opiates Screen (NotDetected) Ur Oxycodone Screen (NotDetected) Urine Methadone Screen (NotDetected) Ur Propoxyphene Screen (NotDetected) Ur Barbiturates Screen (NotDetected) U Tricyclic Antidepress (NotDetected) Ur Phencyclidine Scrn (NotDetected) Ur Amphetamines Screen (NotDetected) U Methamphetamines Scrn (NotDetected) U Benzodiazepines Scrn (NotDetected) Urine Cocaine Screen (NotDetected) U Marijuana (THC) Screen (NotDetected) Serum Alcohol <10 mg/dL 06/13/22 Range/Units Unknown WBC (3.8-10.6) k/uL RBC (3.80-5.40) m/uL Hgb (11.4-16.0) gm/dL Hct (34.0-46.0) % MCV (80.0-100.0) fL MCH (25.0-35.0) pg MCHC (31.0-37.0) g/dL RDW (11.5-15.5) % Plt Count (150-450) k/uL MPV Neutrophils % % Lymphocytes % % Monocytes % % Eosinophils % % Basophils % % Neutrophils # (1.3-7.7) k/uL Lymphocytes # (1.0-4.8) k/uL Monocytes # (0-1.0) k/uL Eosinophils # (0-0.7) k/uL Basophils # (0-0.2) k/uL Sodium (137-145) mmol/L Potassium (3.5-5.1) mmol/L Chloride (98-107) mmol/L Carbon Dioxide (22-30) mmol/L Anion Gap mmol/L BUN (7-17) mg/dL Creatinine (0.52-1.04) mg/dL Est GFR (CKD-EPI)AfAm (>60 ml/min/1.73 sqM) Est GFR (CKD-EPI)NonAf (>60 ml/min/1.73 sqM) Glucose (74-99) mg/dL Plasma Lactic Acid Reza (0.7-2.0) mmol/L Calcium (8.4-10.2) mg/dL Magnesium (1.6-2.3) mg/dL Total Bilirubin (0.2-1.3) mg/dL AST (14-36) U/L ALT (4-34) U/L Alkaline Phosphatase (38-126) U/L Total Protein (6.3-8.2) g/dL Albumin (3.5-5.0) g/dL Urine Color Yellow Urine Appearance Cloudy H (Clear) Urine pH 5.5 (5.0-8.0) Ur Specific [place] 1.024 (1.001-1.035) Urine Protein Negative (Negative) Urine Glucose (UA) Negative (Negative) Urine Ketones Trace H (Negative) Urine Blood Negative (Negative) Urine Nitrite Negative (Negative) Urine Bilirubin Negative (Negative) Urine Urobilinogen <2.0 (<2.0) mg/dL Ur Leukocyte Esterase Large H (Negative) Urine RBC <1 (0-5) /hpf Urine WBC 1 (0-5) /hpf Ur Squamous Epith Cells 9 H (0-4) /hpf Urine Mucus Rare H (None) /hpf Urine Opiates Screen Not Detected (NotDetected) Ur Oxycodone Screen Not Detected (NotDetected) Urine Methadone Screen Not Detected (NotDetected) Ur Propoxyphene Screen Not Detected (NotDetected) Ur Barbiturates Screen Not Detected (NotDetected) U Tricyclic Antidepress Not Detected (NotDetected) Ur Phencyclidine Scrn Not Detected (NotDetected) Ur Amphetamines Screen Not Detected (NotDetected) U Methamphetamines Scrn Not Detected (NotDetected) U Benzodiazepines Scrn Not Detected (NotDetected) Urine Cocaine Screen Not Detected (NotDetected) U Marijuana (THC) Screen Not Detected (NotDetected) Serum Alcohol mg/dL Disposition Clinical Impression: Pseudoseizure Disposition: HOME SELF-CARE Condition: Stable Instructions (If sedation given, give patient instructions): Epilepsy (ED) Additional Instructions: Please complete antibiotic therapy already prescribed by her CURRENCY EXAMINER for urinary tract infection. Please stay well hydrated. If any headaches, altered mental status, or abnormal muscle activity please return to the emergency room. Please follow-up with your primary care provider along with neurology. Please return to the Emergency Department if symptoms worsen or any other concerns. Is patient prescribed a controlled substance at d/c from ED?: No Referrals: Jaren Skelton MD [Primary Care Provider] - 1-2 days Mona Calles MD [Medical Doctor] - As Soon As Possible (Neurology) Time of Disposition: 17:00
[2022-06-13 15:56] VITALS: RESP 16
[2022-06-13 16:09] LABS: Basophils % (A) 0 %; Eosinophils # (A) 0.1 k/uL (0-0.7); Eosinophils % (A) 2 %; HCT 41.8 % (34.0-46.0); HGB 14.1 gm/dL (11.4-16.0); Lymphocytes # (A) 1.3 k/uL (1.0-4.8); Lymphocytes % (A) 16 %; MCH 31.8 pg (25.0-35.0); MCHC 33.7 g/dL (31.0-37.0); MCV 94.3 fL (80.0-100.0); Mean Platelet Volume 8.3; Monocytes # (A) 0.3 k/uL (0-1.0); Monocytes % (A) 4 %; Neutrophils % (A) 76 %; Platelet Count 277 k/uL (150-450); RBC 4.44 m/uL (3.80-5.40); RDW 11.8 % (11.5-15.5); WBC 7.9 k/uL (3.8-10.6)
[2022-06-13 16:13] LABS: Appearance,Urine Cloudy (Clear); Bilirubin,Urine Negative (Negative); Blood,Urine Negative (Negative); Color,Urine Yellow; Glucose,Urine (UA) Negative (Negative); Ketones,Urine Trace (Negative); Leukocyte Esterase,Urine Large (Negative); Mucus,Urine Rare /hpf; Nitrite,Urine Negative (Negative); PH, Urine 5.5 (5.0-8.0); Protein,Urine Negative (Negative); RBC,Urine <1 /hpf (0-5); Specific Gravity,Urine 1.024 (1.001-1.035); Squamous Epithelial Cell,Urine 9 /hpf (0-4); Urobilinogen,Urine <2.0 mg/dL (<2.0); WBC,Urine 1 /hpf (0-5)
[2022-06-13 16:14] LABS: Amphetamine Screen,Urine Not Detected (NotDetected); Barbiturate Screen,Urine Not Detected (NotDetected); Benzodiazepines Screen,Urine Not Detected (NotDetected); Cocaine Screen,Urine Not Detected (NotDetected); Methadone Screen, Urine Not Detected (NotDetected); Opiate Screen,Urine Not Detected (NotDetected); Oxycodone Screen, Urine Not Detected (NotDetected); Phencyclidine Screen,Urine Not Detected (NotDetected); Tricyclic Antidepressant,Urine Not Detected (NotDetected); Urn Cannabinoid Scrn Not Detected (NotDetected)
[2022-06-13 16:20] LABS: ALT 12 U/L (4-34); AST 17 U/L (14-36); African American GFR (CKD) >90 (>60 ml/min/1.73 sqM); Albumin 4.5 g/dL (3.5-5.0); Alcohol <10 mg/dL; Alkaline Phosphatase 60 U/L (38-126); Anion Gap 11 mmol/L; Blood Urea Nitrogen 9 mg/dL (7-17); Calcium 9.3 mg/dL (8.4-10.2); Carbon Dioxide 19 mmol/L (22-30); Chloride 107 mmol/L (98-107); Glucose 82 mg/dL (74-99); Magnesium 1.5 mg/dL (1.6-2.3); Non-African American GFR(CKD) >90 (>60 ml/min/1.73 sqM); Potassium 4.3 mmol/L (3.5-5.1); Sodium 137 mmol/L (137-145); Total Bilirubin 0.3 mg/dL (0.2-1.3); Total Protein 8.2 g/dL (6.3-8.2)
--- NOTE | 2022-06-13 16:42 | CT ---
EXAMINATION TYPE: CT brain wo con DATE OF EXAM: 06/13/2022 COMPARISON: None HISTORY: Seizure. CT DLP: 1099.4 mGycm Automated exposure control for dose reduction was used. Exam performed with no contrast. Ventricles and sulci appear normal. There is no mass effect or midline shift. No sign of intracranial hemorrhage. Calvarium is intact. No evidence of cerebral edema. The skull base is intact. IMPRESSION: Normal unenhanced head CT scan.
[2022-06-13 17:23] VITALS: BP 107/73; PULSE 71; TEMP 97.7
== END 2022-06-13 17:29 | disposition home or self-care (01) ==
LOC: EC 14:51
DX: G40.909 Epilepsy, unspecified, not intractable, without status epilepticus (principal)
CPT/HCPCS: 36415; 80053; 83605; 83735; 85025; 81001; 84146; 80306; 70450; 99284; G0480; 80320

== ENCOUNTER 2022-08-08 11:03 | Emergency (ER) | payer OTHER ==
[2022-08-08 11:20] VITALS: BP 117/72; PULSE 77; RESP 16
[2022-08-08] MEDS ORDERED: ACETAMINOPHEN TAB 500 MG TAB PO STA (12:12)
--- NOTE | 2022-08-08 12:24 | ED ---
Seizure HPI - General Chief Complaint: Seizure Stated Complaint: seizures Time Seen by Provider: 08/08/22 12:00 Source: EMS Mode of arrival: EMS Limitations: no limitations - History of Present Illness Initial Comments: Patient is a 37-year-old female with a history of seizure and pseudoseizure who presents to the emergency department for [facility] for seizure activity. Patient states she was at her appointment for depression and anxiety when the therapist felt that she was experiencing seizure-like activity. Patient states she was very emotionally triggered during her visit which caused her to have upper body twitches. The therapist became concerned and sent her to the emergency department. Denies LOC, tongue trauma. Patient states during this time she had a mild headache and generalized numbness which has since resolved. Patient denies fever, chills, shortness of breath, chest pain, abdominal pain, nausea, vomiting, diarrhea. States she does not take anti epileptic medication. MD Complaint: seizure - Related Data Home Medications Medication Instructions Recorded Confirmed Vitamin Plus Low Iron 1 tab PO DAILY 10/20/19 04/28/20 Previous Rx's Medication Instructions Recorded Ibuprofen [Motrin] 600 mg PO Q6HR PRN #30 tab 04/21/20 Ibuprofen [Motrin] 600 mg PO Q6HR PRN #30 tab 04/30/20 Labetalol [Trandate] 200 mg PO BID #60 tablet 04/30/20 Allergies Allergy/AdvReac Type Severity Reaction Status Date / Time No Known Allergies Allergy Verified 04/28/20 15:53 Review of Systems ROS Statement: Those systems with pertinent positive or pertinent negative responses have been documented in the HPI. ROS Other: All systems not noted in ROS Statement are negative. Past Medical History Past Medical History: Seizure Disorder Additional Past Medical History / Comment(s): per - conversion disorder. pseudoseizures. Obstetric history: She has had 3 previous vaginal deliveries and 2 spontaneous abortions. This is her sixth . She's had care with me since the first trimester. Blood type is O+, antibodies negative, rubella immune, hepatitis B-, GBS negative, HIV nonreactive, RPR nonreactive. She does have a history of some pseudoseizures brought on by anxiety and stress. History of Any Multi-Drug Resistant Organisms: None Reported Past Surgical History: No Surgical Hx Reported Past Anesthesia/Blood Transfusion Reactions: No Reported Reaction Past Psychological History: Anxiety, Depression Smoking Status: Never smoker Past Alcohol Use History: Occasional Past Drug Use History: None Reported - Past Family History Mother Family Medical History: No Reported History General Exam Limitations: no limitations General appearance: alert, in no apparent distress Eye exam: Present: normal appearance, PERRL, EOMI. Absent: scleral icterus, conjunctival injection, periorbital swelling ENT exam: Present: normal oropharynx Respiratory exam: Present: normal lung sounds bilaterally. Absent: respiratory distress, wheezes, rales, rhonchi, stridor Cardiovascular Exam: Present: regular rate, normal rhythm, normal heart sounds. Absent: systolic murmur, diastolic murmur, rubs, gallop, clicks GI/Abdominal exam: Present: soft, normal bowel sounds. Absent: distended, tenderness, guarding, rebound, rigid Neurological exam: Present: alert, oriented X3, CN II-XII intact Psychiatric exam: Present: normal affect, normal mood Skin exam: Present: warm, dry, intact, normal color. Absent: rash Course Vital Signs 08/08/22 11:14 Pulse Rate 77 Respiratory 16 Rate Blood Pressure 117/72 O2 Sat by Pulse 97 Oximetry Medical Decision Making - Medical Decision Making This is a 37-year-old who presents with possible seizure-like activity. Patient is well-appearing and in no apparent distress. She is not post ictal. A&O x 4. Laboratory studies were initially ordered however patient declines. Patient states every time she has an appointment with [facility] she experiences this activity which causes them to send her to the emergency department. Patient adamant that the event that happened today was due to emotional stress. She was observed in the emergency department and bilateral shoulder twitching was noted. It was inconsistent with epileptic seizure activity. During which she was able to answer questions appropriately. Patient will be discharged to strict return parameters. She has an appointment with neurologist this fall, uncertain of name. Dr. Sims is my attending. Disposition Clinical Impression: Observed seizure-like activity Disposition: HOME SELF-CARE Condition: Good Instructions (If sedation given, give patient instructions): Nonepileptic Seizures (ED), Conversion Disorder (ED) Additional Instructions: Follow-up with neurologist as planned. Return to the emergency department if you experience new, concerning, or worsening symptoms. Is patient prescribed a controlled substance at d/c from ED?: No Referrals: Jaren Skelton MD [Primary Care Provider] - 1-2 days Time of Disposition: 12:24
== END 2022-08-08 14:50 | disposition home or self-care (01) ==
LOC: EC 11:03
DX: G40.89 Other seizures (principal)
CPT/HCPCS: 99284

== ENCOUNTER → 2024-11-19 | Outpatient (CLI) | payer OTHER ==
--- NOTE | 2024-11-20 17:52 | US ---
EXAMINATION TYPE: US pelvis complete transvag DATE OF EXAM: 11/19/2024 COMPARISON: 10/20/2019. CLINICAL INDICATION: Female, 39 years old with history of R04.89 ABD PAIN K29.70 GASTRITIS N83.209 OV DELORES CYST; TECHNIQUE: . Transabdominal grayscale sonographic images of the pelvis were acquired. Transvaginal sonographic im ages were medically necessary to better assess the following anatomy: Doppler imaging: Color Doppler Images were obtained. FINDINGS: EXAM MEASUREMENTS: Uterus: 8.6x2.9x3.4 cm Endometrial Stripe: 1.1 cm Right Ovary: 2.4x1.2x2.5 cm Left Ovary: 3.4x1.7x2.7 cm Pt had IUD placed x 4 years ago 1. Uterus: Anteverted wnl 2. Endometrium: wnl 3. Right Ovary: Complex area seen: 1.0x0.6x0.9cm 4. Left Ovary: Complex area seen: 2.1x1.5x1.9 5. Bilateral Adnexa: wnl 6. Posterior cul-de-sac: ?Free fluid seen within post. cul de sac IMPRESSION: 1. No evidence for acute process. 2. IUD identified within the endometrium. 3. Complex left ovarian follicle likely representing involuting hemorrhagic cyst. [facility], , 11/20/2024 5:50 PM
--- NOTE | 2024-11-20 18:16 | US ---
EXAMINATION TYPE: US abdomen complete DATE OF EXAM: 11/19/2024 COMPARISON: 09/14/2019 CLINICAL INDICATION: Female, 39 years old with history of R04.89 ABD PAIN K29.70 GASTRITIS N83.209 OV DELORES C; TECHNIQUE: Grayscale and color Doppler imaging of the abdomen was performed. FINDINGS: EXAM MEASUREMENTS: Liver Length: 18.3 cm Gallbladder Wall: 0.2 cm CBD: 0.3 cm, color Doppler imaging was utilized to isolate the common bile duct for measurement. Spleen: 8.5 cm Right Kidney: 11.5x4.3x5.0 cm Left Kidney: 12.4x5.5x5.9 cm CALL CENTER PROFESSIONAL NOTES: Pancreas: Tail obscured by overlying bowel gas Liver: Complex area seen(rt lobe): 1.7x1.8x2.4cm Hypoechoic area seen(rt lobe): 2.7x1.7x2.7cm Gallbladder: No stones seen Evidence for sonographic Wilson's sign: No CBD: wnl Spleen: wnl Right Kidney: ?Mild dilation of renal pelvis Left Kidney: No hydronephrosis or masses seen Upper IVC: wnl Abd Aorta: wnl IMPRESSION: Masslike area in the right hepatic lobe. Further evaluation of the liver with MRI liver mass protocol should be considered. [facility], , 11/20/2024 6:13 PM
== END | disposition home or self-care (01) ==
LOC: RADUSWWP 09:02
PROVIDERS: ATTEND Family Medicine
DX: R04.89 Hemorrhage from other sites in respiratory passages (principal); K29.70 Gastritis, unspecified, without bleeding; N83.209 Unspecified ovarian cyst, unspecified side
CPT/HCPCS: 76700; 76830; 76856

== ENCOUNTER 2024-12-21 08:09 | Inpatient (IN) | payer OTHER ==
[2024-12-21] MEDS: LORazepam 2 MG/ML INJ IV STA (08:15)
[2024-12-21] MEDS: SODIUM CHLORIDE 0.9% 1,000 ML IV STA (08:28)
[2024-12-21] MEDS: levETIRAcetam IV 500 MG/5 ML VIAL IVP STA (08:30)
[2024-12-21] MEDS ORDERED: levETIRAcetam IV 2,000 MG in SODIUM CHLORIDE 0.9% 250 ML IVPB ONE (08:30)
--- NOTE | 2024-12-21 08:33 | ED ---
General Adult HPI - General Chief complaint: Seizure Stated complaint: Seizure Time Seen by Provider: 12/21/24 08:16 Source: family Mode of arrival: wheelchair Limitations: altered mental status - History of Present Illness Initial comments: Dictation was produced using [employer] dictation software. please excuse any grammatical, word or spelling errors. Chief Complaint: 39-year-old female presents emergency department seizure. History of Present Illness: Patient is altered not able to provide history present illness or review of systems at this time. Patient 39-year-old female history present illness obtained from patient's friend spoke to nurse. Patient was getting outpatient MRI when she had a seizure. She was brought immediately to the emergency department. Patient had 2 seizures here in the department prior to my evaluation. Allegedly patient has been traveling and not been keeping up with her Keppra medications. Unable to obtain ROS due to mental status - Related Data Home Medications Medication Instructions Recorded Confirmed FLUoxetine HCL [Fluoxetine HCl] 60 mg PO HS 12/21/24 12/21/24 levETIRAcetam [Keppra] 500 mg PO BID 12/21/24 12/21/24 Allergies Allergy/AdvReac Type Severity Reaction Status Date / Time No Known Allergies Allergy Verified 12/21/24 08:25 Review of Systems ROS Statement: Those systems with pertinent positive or pertinent negative responses have been documented in the HPI. ROS Other: All systems not noted in ROS Statement are negative. Past Medical History Past Medical History: Seizure Disorder Additional Past Medical History / Comment(s): per - conversion disorder. pseudoseizures. Obstetric history: She has had 3 previous vaginal deliveries and 2 spontaneous abortions. This is her sixth . She's had care with me since the first trimester. Blood type is O+, antibodies negative, rubella immune, hepatitis B-, GBS negative, HIV nonreactive, RPR nonreactive. She does have a history of some pseudoseizures brought on by anxiety and stress. History of Any Multi-Drug Resistant Organisms: None Reported Past Surgical History: No Surgical Hx Reported Past Anesthesia/Blood Transfusion Reactions: No Reported Reaction Past Psychological History: Anxiety, Depression Smoking Status: Never smoker Past Alcohol Use History: Occasional Past Drug Use History: None Reported - Past Family History Mother Family Medical History: No Reported History General Exam - General Exam Comments Initial Comments: PHYSICAL EXAM: General Impression: Postictal HEENT: Normocephalic atraumatic, extra-ocular movements intact, pupils equal and reactive to light bilaterally, mucous membranes moist. Cardiovascular: Heart regular rate and rhythm Chest: no retractions, no tachypnea Abdomen: abdomen soft, non-tender, non-distended, no organomegaly Musculoskeletal: Pulses present and equal in all extremities, no peripheral edema Motor: no focal deficits noted Neurological: No facial asymmetry, moves all extremities grossly Skin: Intact with no visualized rashes Limitations: altered mental status Course Vital Signs 12/21/24 12/21/24 12/21/24 08:18 08:30 09:00 Temperature 98.7 F Pulse Rate 78 77 68 Respiratory 20 12 14 Rate Blood Pressure 153/80 133/81 129/81 O2 Sat by Pulse 100 100 100 Oximetry 12/21/24 12/21/24 09:30 10:00 Temperature Pulse Rate 70 68 Respiratory 17 17 Rate Blood Pressure 130/80 105/70 O2 Sat by Pulse 100 100 Oximetry EKG Findings - EKG Comments: EKG Findings:: My EKG interpretation: Ventricular rate 81, sinus rhythm,. 153, QRS 90, QTc 438. No GA prolongation, no QTC prolongation, no ST or T-wave changes noted. . Overall, this EKG is unremarkable Medical Decision Making - Medical Decision Making Was pt. sent in by a medical professional or institution ([facility], [facility], urgent care, hospital, or intermediate...) When possible be specific @ -[No] Did you speak to anyone other than the patient for history (EMS, parent, family, police, friend...)? What history was obtained from this source @ -[No] Did you review nursing and triage notes (agree or disagree)? Why? @ -[I reviewed and agree with nursing and triage notes] Were old charts reviewed (outside hosp., previous admission, EMS record, old EKG, old radiological studies, urgent care reports/EKG's, intermediate records)? Report findings @ -[No old charts were reviewed] Differential Diagnosis (chest pain, altered mental status, abdominal pain women, abdominal pain men, vaginal bleeding, musculoskeletal, weakness, fever, dyspnea, syncope, headache, dizziness, GI bleed, back pain, seizure, CVA, palpatations, mental health)? @ -Differential Seizure: Recurrent seizure disorder, febrile seizure, alcohol withdrawal, stimulants, meningitis, encephalitis, intercranial hemorrhage, intracranial tumor, stroke, eclampsia, thyrotoxicosis, hypocalcemia, hyponatremia, hypernatremia, hypomagnesemia, psychogenic, this is not meant to be an all-inclusive list. EKG interpreted by me (3pts min.). @ -See above X-rays interpreted by me (1pt min.). @ -[None done] CT interpreted by me (1pt min.). @ -CT brain shows no acute processes U/S interpreted by me (1pt. min.). @ -[None done] What testing was considered but not performed or refused? (CT, X-rays, U/S, labs)? Why? @ -[None] What meds were considered but not given or refused? Why? @ -[None] Was smoking cessation discussed for >3mins.? @ -[No] Were there social determinants of health that impacted care today? How? (Homelessness, low income, unemployed, alcoholism, drug addiction, transportation, low edu. Level, literacy, decrease access to med. care, long-term, rehab)? @ -[No] Was there de-escalation of care discussed even if they declined (Discuss DNR or withdrawal of care, Hospice)? DNR status @ -[No] What co-morbidities impacted this encounter? (DM, HTN, Smoking, COPD, CAD, Cancer, CVA, ARF, Chemo, Hep., AIDS, mental health diagnosis, sleep apnea, m orbid obesity)? @ -Seizure disorder Was patient admitted / discharged? Hospital course, mention meds given and route, prescriptions, significant lab abnormalities, going to OR and other pertinent info. @ -39-year-old female presents to the emergency department with multiple seizures this morning. Clinical presentation consistent with status epilepticus. Vital signs upon arrival are within acceptable limits. Patient allegedly noncompliant with her Keppra medications. Patient given 2 mg of A tivan after having had a seizure here in the ER. Laboratory evaluation within acceptable limits. CT brain is negative. Case discussed with neurology who is acceptable that patient may have been admitted to our facility despite no 24- hour EEG coverage. Case discussed with hospitalist for admission Did you discuss the management of the patient with other professionals (professionals i.e. , PA, [facility], lab, RT, psych nurse, social media assistant, mechanical technologist, teacher, officer captain, piano case maker)? Give summary @ -See above Was critical care preformed (if so, how long)? @ -Yes, 33 minutes for management of status epilepticus Undiagnosed new problem with uncertain prognosis? @ -[No] Drug Therapy requiring intensive monitoring for toxicity (Heparin, Nitro, Insulin, Cardizem)? @ -[No] Were any procedures done? @ -[No] Diagnosis/symptom? Acute, or Chronic, or Acute on Chronic? Uncomplicated (without systemic symptoms) or Complicated (systemic symptoms)? @ -Status epilepticus Side effects of treatment? @ -[No] Exacerbation, Progression, or Severe Exacerbation? @ -[No] Poses a threat to life or bodily function? How? (Chest pain, [place], PR, pneumonia, PE, COPD, DKA, ARF, appy, cholecystitis, CVA, Diverticulitis, Homicidal, Suicidal, threat to staff... and all critical care pts) @ -Yes - Lab Data Result diagrams: 12/21/24 08:26 12/21/24 08:28 Lab Results 12/21/24 12/21/24 12/21/24 Range/Units 08:26 08:28 08:28 WBC 6.7 (3.8-10.6) k/uL RBC 4.26 (3.80-5.40) m/uL Hgb 13.1 (11.4-16.0) gm/dL Hct 39.4 (34.0-46.0) % MCV 92.5 (80.0-100.0) fL MCH 30.7 (25.0-35.0) pg MCHC 33.2 (31.0-37.0) g/dL RDW 12.1 (11.5-15.5) % Plt Count 347 (150-450) k/uL MPV 7.8 Neutrophils % 57 % Lymphocytes % 34 % Monocytes % 4 % Eosinophils % 3 % Basophils % 0 % Neutrophils # 3.8 (1.3-7.7) k/uL Lymphocytes # 2.3 (1.0-4.8) k/uL Monocytes # 0.3 (0-1.0) k/uL Eosinophils # 0.2 (0-0.7) k/uL Basophils # 0.0 (0-0.2) k/uL Sodium 141 (137-145) mmol/L Potassium 3.7 (3.5-5.1) mmol/L Chloride 107 (98-107) mmol/L Carbon Dioxide 17 L (22-30) mmol/L Anion Gap 17 mmol/L BUN 5 L (7-17) mg/dL Creatinine 0.85 (0.52-1.04) mg/dL Est GFR (CKD-EPI)AfAm >90 (>60 ml/min/1.73 sqM) Est GFR (CKD-EPI)NonAf 87 (>60 ml/min/1.73 sqM) Glucose 100 H (74-99) mg/dL Lactic Ac Sepsis Rflx Plasma Lactic Acid Reza 5.6 H* (0.7-2.0) mmol/L Calcium 9.0 (8.4-10.2) mg/dL Magnesium 1.8 (1.6-2.3) mg/dL Total Bilirubin 0.4 (0.2-1.3) mg/dL AST 21 (14-36) U/L ALT 15 (4-34) U/L Alkaline Phosphatase 91 (38-126) U/L Total Protein 7.8 (6.3-8.2) g/dL Albumin 4.3 (3.5-5.0) g/dL HCG, Quant <2.4 mIU/mL 12/21/24 Range/Units 09:06 WBC (3.8-10.6) k/uL RBC (3.80-5.40) m/uL Hgb (11.4-16.0) gm/dL Hct (34.0-46.0) % MCV (80.0-100.0) fL MCH (25.0-35.0) pg MCHC (31.0-37.0) g/dL RDW (11.5-15.5) % Plt Count (150-450) k/uL MPV Neutrophils % % Lymphocytes % % Monocytes % % Eosinophils % % Basophils % % Neutrophils # (1.3-7.7) k/uL Lymphocytes # (1.0-4.8) k/uL Monocytes # (0-1.0) k/uL Eosinophils # (0-0.7) k/uL Basophils # (0-0.2) k/uL Sodium (137-145) mmol/L Potassium (3.5-5.1) mmol/L Chloride (98-107) mmol/L Carbon Dioxide (22-30) mmol/L Anion Gap mmol/L BUN (7-17) mg/dL Creatinine (0.52-1.04) mg/dL Est GFR (CKD-EPI)AfAm (>60 ml/min/1.73 sqM) Est GFR (CKD-EPI)NonAf (>60 ml/min/1.73 sqM) Glucose (74-99) mg/dL Lactic Ac Sepsis Rflx Y Plasma Lactic Acid Reza (0.7-2.0) mmol/L Calcium (8.4-10.2) mg/dL Magnesium (1.6-2.3) mg/dL Total Bilirubin (0.2-1.3) mg/dL AST (14-36) U/L ALT (4-34) U/L Alkaline Phosphatase (38-126) U/L Total Protein (6.3-8.2) g/dL Albumin (3.5-5.0) g/dL HCG, Quant mIU/mL Disposition Clinical Impression: Status epilepticus Disposition: ADMITTED IP TO THIS [facility] Instructions (If sedation given, give patient instructions): Seizure/Epilepsy Discharge Instructions & Follow-Up Referrals: Jaren Skelton MD [Primary Care Provider] - 1-2 days Decision Time: 11:16
[2024-12-21 08:36] LABS: Basophils % (A) 0 %; Eosinophils # (A) 0.2 k/uL (0-0.7); Eosinophils % (A) 3 %; HCT 39.4 % (34.0-46.0); HGB 13.1 gm/dL (11.4-16.0); Lymphocytes # (A) 2.3 k/uL (1.0-4.8); Lymphocytes % (A) 34 %; MCH 30.7 pg (25.0-35.0); MCHC 33.2 g/dL (31.0-37.0); MCV 92.5 fL (80.0-100.0); Mean Platelet Volume 7.8; Monocytes # (A) 0.3 k/uL (0-1.0); Monocytes % (A) 4 %; Neutrophils # (A) 3.8 k/uL (1.3-7.7); Neutrophils % (A) 57 %; Platelet Count 347 k/uL (150-450); RBC 4.26 m/uL (3.80-5.40); RDW 12.1 % (11.5-15.5); WBC 6.7 k/uL (3.8-10.6)
[2024-12-21 08:58] LABS: ALT 15 U/L (4-34); AST 21 U/L (14-36); African American GFR (CKD) >90 (>60 ml/min/1.73 sqM); Albumin 4.3 g/dL (3.5-5.0); Alkaline Phosphatase 91 U/L (38-126); Anion Gap 17 mmol/L; Blood Urea Nitrogen 5 mg/dL (7-17); Carbon Dioxide 17 mmol/L (22-30); Chloride 107 mmol/L (98-107); Glucose 100 mg/dL (74-99); Magnesium 1.8 mg/dL (1.6-2.3); Non-African American GFR(CKD) 87 (>60 ml/min/1.73 sqM); Potassium 3.7 mmol/L (3.5-5.1); Sodium 141 mmol/L (137-145); Total Bilirubin 0.4 mg/dL (0.2-1.3); Total Protein 7.8 g/dL (6.3-8.2)
[2024-12-21 09:12] LABS: HCG,Quantitative Serum <2.4 mIU/mL
--- NOTE | 2024-12-21 10:06 | CT ---
EXAMINATION TYPE: CT brain wo con CT DLP: 1096 mGycm, Automated exposure control for dose reduction was used. DATE OF EXAM: 12/21/2024 9:59 AM COMPARISON: CT brain 06/13/2022 CLINICAL INDICATION:Female, 39 years old with history of status seizure, SEIZURE TECHNIQUE: Brain: Multiple axial CT images of the brain were obtained without IV contrast. . Coronal and sagitta l reformats reviewed. FINDINGS: Brain: Extra-axial spaces: No abnormal extra-axial fluid collections. Ventricular system: Within normal limits Cerebral parenchyma: No acute intraparenchymal hemorrhage or mass effect. The chris-white junction is well differentiated. Cerebellum: Unremarkable. Mass effect: No evidence of midline shift. Intracranial vasculature: unremarkable Soft tissues: Normal. Calvarium/osseous structures: No depressed skull fracture. Paranasal sinuses and mastoid air cells: Clear. Visualized orbits: Orbital contents are intact. IMPRESSION: No acute intracranial process. [facility], , 12/21/2024 10:04 AM
[2024-12-21] MEDS ORDERED: NALOXONE 0.4 MG/ML 1 ML VIAL IV PRN (11:09)
[2024-12-21] MEDS: SODIUM CHLORIDE 0.9% 1,000 ML IV SCH (13:02)
--- NOTE | 2024-12-21 16:19 | P.CNNES ---
History of Present Illness Consult date: 12/21/24 Requesting physician: Pieter Wolf Reason for Consult: seizure History of Present Illness: This is a 39-year-old woman with history of seizure who presents to the emergency department because of seizure-like activity while getting her MRI of the brain as an outpatient. Some of the history is obtained from the ED josé miguel machado. It seems while the patient was getting MRI of the brain she had seizure-like activity. Then as a result she was brought to the emergency department and had 2 further seizure-like activity. Patient states she follows up with neurologist as an outpatient but does not recall exactly who when I gave her the name she thinks she follows up with Dr. Chaudhary and had epilepsy monitoring unit at [address] [place] [address] and was told her seizures were nonepileptic. She is on Keppra 500 mg twice daily. She stated that she missed her night Keppra dose yesterday since was late when she came home and did not get her morning dose in the morning prior to her seizure because of was early. Prior to her seizure-like activity she felt numbness throughout her body and does not recall what happened with the seizures. She denies any tongue bite, urinary or bowel incontinence. She feels her numbness has resolved. Emergency department she received 2 mg of Ativan as well as received a loading dose of Keppra 1000 mg. Some of the workup during this hospital visit consisted of: Patient is afebrile. Plasma lactic acid vein is 5.6 BUN is 5, carbon dioxide is 17. Repeated plasma lactic acid vein is normal is 1.9. CBC with differential is unremarkable and CT of the head is no acute intracranial process. Reviewed the CT and I agree with the report. Review of Systems As per HPI. Past Medical History Past Medical History: Seizure Disorder Additional Past Medical History / Comment(s): per - conversion disorder. pseudoseizures. Obstetric history: She has had 3 previous vaginal deliveries and 2 spontaneous abortions. This is her sixth . She's had care with me since the first trimester. Blood type is O+, antibodies negative, rubella immune, hepatitis B-, GBS negative, HIV nonreactive, RPR nonreactive. She does have a history of some pseudoseizures brought on by anxiety and stress. History of Any Multi-Drug Resistant Organisms: None Reported Past Surgical History: No Surgical Hx Reported Past Anesthesia/Blood Transfusion Reactions: No Reported Reaction Past Psychological History: Anxiety, Depression Smoking Status: Never smoker Past Alcohol Use History: Occasional Past Drug Use History: None Reported - Past Family History Mother Family Medical History: No Reported History Medications and Allergies Home Medications Medication Instructions Recorded Confirmed Type FLUoxetine HCL [Fluoxetine HCl] 60 mg PO HS 12/21/24 12/21/24 History levETIRAcetam [Keppra] 500 mg PO BID 12/21/24 12/21/24 History Allergies Allergy/AdvReac Type Severity Reaction Status Date / Time No Known Allergies Allergy Verified 12/21/24 08:25 Physical Examination - Vital Signs Vital Signs: Vital Signs Temp Pulse Resp BP Pulse Ox 12/21/24 15:00 68 16 135/86 100 12/21/24 14:14 62 16 130/75 99 12/21/24 14:00 67 16 101/63 98 12/21/24 13:00 81 14 113/67 100 12/21/24 12:54 69 16 113/67 100 12/21/24 12:00 65 16 99/68 100 12/21/24 11:00 67 16 107/68 100 12/21/24 10:00 68 17 105/70 100 12/21/24 09:30 70 17 130/80 100 12/21/24 09:00 68 14 129/81 100 12/21/24 08:30 77 12 133/81 100 12/21/24 08:18 98.7 F 78 20 153/80 100 Intake and Output 12/21/24 12/21/24 12/21/24 06:59 14:59 22:59 Other: Weight 79.832 kg General: Lying in bed and is not in acute distress. Neuro: The patient was sleeping but she was awakeable to voice. She is oriented to self place and time. Is following simple commands. No aphasia. The pupils Pupil are about 5 mm and reactive to light. Visual walker are full to confrontation. Extraocular movements intact no nystagmus. No dysarthria. Patient was not fully cooperative since she was sleeping and received Ativan The motor the strength she is lifted all extremities above gravity equally Sensation is normal to touch Cerebellar normal [id number] bilaterally. Reflexes 2 positive throughout. Plantars are mute bilaterally. Results - Laboratory Findings CBC and BMP: 12/21/24 08:26 12/21/24 08:28 Abnormal Lab Findings: Abnormal Labs 12/21/24 12/21/24 08:28 08:28 Carbon Dioxide 17 L BUN 5 L Glucose 100 H Plasma Lactic Acid Reza 5.6 H* Assessment and Plan Assessment: This is a 39-year-old woman with history of nonepileptic seizure who is on Keppra 500 mg twice daily who presents to the emergency department because of seizure-like activity when she was getting her outpatient MRI and while in the ED she had 2 further seizure-like activity. She stated that she missed her Keppra night dose yesterday. Patient had elevated lactic acid vein in the ED. Breakthrough seizure please due to patient missing her medication. I am concerned patient has epileptic in addition to nonepileptic History of nonepileptic seizure and patient had a prolonged EEG which she thinks she had it done at your [facility] and was told nonepileptic seizure and she is on Keppra 500 mg twice daily Plan: I increased her Keppra from 500 mg twice daily to 1000 mg twice daily. Patient was notified of the importance of medication compliance Seizure precautions seizure pads Unsure if patient completed her MRI of the brain as an outpatient Recommend patient to follow-up with her neurologist with 2 weeks, Dr. Chaudhary and consideration of a repeat epilepsy monitoring unit (EMU) to assess if patient has epileptic in addition to nonepileptic seizure Per the [place] DMV because of the seizure, to avoid driving for 6-month until seizure-free, avoid heights, avoid swimming assisted or using heavy machinery Will defer the rest of the medical management to primary team Plan is discussed with the patient and her nurse Thank you for the consultation. Time with Patient: Greater than 30
[2024-12-21] MEDS: levETIRAcetam 500 MG TAB PO SCH (21:37)
[2024-12-21] MEDS: LORazepam 2 MG/ML INJ IV PRN (22:02)
[2024-12-22] MEDS: LORazepam 2 MG/ML INJ IV PRN (08:38)
--- NOTE | 2024-12-22 15:39 | P.PN ---
Subjective Progress Note Date: 12/22/24 I am following-up with the up with the patient and per the nurse she had further seizure today early in the morning. Patient feels she is doing better. Objective - Vital Signs Vital signs: Vital Signs Temp 98.3 F 12/21/24 17:19 Pulse 65 12/22/24 08:00 Resp 17 12/22/24 08:00 BP 115/67 12/22/24 08:00 Pulse Ox 100 12/22/24 08:00 FiO2 Intake & Output 12/21/24 12/22/24 12/22/24 18:59 06:59 18:59 Weight 79.832 kg Other: # Voids 1 2 - Exam General: Standing up walking and is not in acute distress. Neuro: Is awake alert oriented to self place and time. Is following simple commands. No aphasia. No dysarthria Motor the strength is 5 out of 5. Patient has unsteady gait. Some of the workup during this hospital visit consisted of: Patient is afebrile. Plasma lactic acid vein is 5.6 BUN is 5, carbon dioxide is 17. Repeated plasma lactic acid vein is normal is 1.9. CBC with differential is unremarkable and CT of the head is no acute intracranial process. Reviewed the CT and I agree with the report. - Labs CBC & Chem 7: 12/21/24 08:26 12/21/24 08:28 Assessment and Plan Assessment: This is a 39-year-old woman with history of nonepileptic seizure who is on Keppra 500 mg twice daily who presents to the emergency department because of seizure-like activity when she was getting her outpatient MRI and while in the ED she had 2 further seizure-like activity. She stated that she missed her Keppra night dose yesterday. Patient had elevated lactic acid vein in the ED. Breakthrough seizure please due to patient missing her medication. I am concerned patient has epileptic in addition to nonepileptic. Had another seizure-like activity today in the morning. History of nonepileptic seizure and patient had a prolonged EEG which she thinks she had it done at your [facility] and was told nonepileptic seizure and she is on Keppra 500 mg twice daily Plan: I increased her Keppra from 500 mg twice daily to 1000 mg twice daily yesterday. I will obtain a routine EEG. Patient was notified of the importance of medication compliance Seizure precautions seizure pads Unsure if patient completed her MRI of the brain as an outpatient Recommend patient to follow-up with her neurologist with 2 weeks, Dr. Chaudhary and consideration of a repeat epilepsy monitoring unit (EMU) to assess if patient has epileptic in addition to nonepileptic seizure Per the [place] DMV because of the seizure, to avoid driving for 6-month until seizure-free, avoid heights, avoid swimming assisted or using heavy machinery Will defer the rest of the medical management to primary team Time with Patient: Less than 30
[2024-12-22] MEDS ORDERED: levETIRAcetam IV 1,500 MG in SODIUM CHLORIDE 0.9% 250 ML IVPB ONE (19:30)
[2024-12-22] MEDS: Lacosamide IV (ages 17+ yrs) 200 MG/20 ML ML IVP STA (19:56)
[2024-12-22] MEDS: FLUoxetine HCL 20 MG CAP PO SCH (19:57)
[2024-12-22] MEDS: levETIRAcetam IV 2,000 MG in SODIUM CHLORIDE 0.9% 250 ML IVPB ONE (20:21)
--- NOTE | 2024-12-23 01:27 | HP ---
HISTORY AND PHYSICAL CHIEF COMPLAINT: Status epilepticus. HISTORY OF PRESENT ILLNESS: This is another admission for this 39-year-old female, who has had longstanding history of poorly controlled seizures. She came to the emergency room after she had a seizure and then had Novolin in the emergency room. She denies headaches, focal neurologic deficits, etc. Past medical history, family history, and personal and social histories are unremarkable otherwise. She is not allergic to anything. Her medications include Keppra. She is not compliant in taking it. She is also on trazodone, and fluoxetine. PHYSICAL EXAMINATION: VITAL SIGNS: Normal. HEAD, EARS, EYES, NOSE, MOUTH, AND THROAT: Normal. There is no sign of any injury. Pupils equally round and reactive to light. CHEST: Clear. CARDIAC: Normal. ABDOMEN: Soft, nontender. IMPRESSION: 1. Status epilepticus. 2. Poorly controlled grand mal seizures. PLAN: 1. Bed rest. 2. Seizure precautions. 3. Consult Neurology. 4. Continue on Keppra and likely increase the dose with the possibility of additional medication. MMODL / IJN: [id number] /
--- NOTE | 2024-12-23 04:18 | PN ---
PROGRESS NOTE DATE OF SERVICE: 12/22/2024 CHIEF COMPLAINT: Status asthmaticus. HISTORY OF PRESENT ILLNESS: This lady had another seizure this morning. She has been stable otherwise. Vital signs are normal. She is being seen by Neurology. It is suspected that she has not been taking her medications regularly and she is on a relatively low dose of Keppra and this has been increased to 1 g twice a day. PHYSICAL EXAMINATION: GENERAL: She is awake and alert. VITAL SIGNS: Normal. CHEST: Clear. CARDIAC: Normal. IMPRESSION: Status asthmaticus. PLAN: 1. Continue to monitor her on Keppra on the increased dose. 2. Keppra level. MMODL / IJN: [id number] /
--- NOTE | 2024-12-23 05:24 | EEG ---
ELECTROENCEPHALOGRAM REPORT CLINICAL HISTORY: This is a 39-year-old woman with history of seizure, who is having recurrent seizure like activities. The video EEG is obtained to evaluate for seizure epileptiform activity. MEDICATIONS: 1. Keppra. 2. Ativan. EEG TYPE: This is a routine 21-channel EEG with video using the 10/20 electrode placement system. DESCRIPTION: Wakefulness and drowsiness are obtained. During awake state, the background consists of nqf-qz-ktejgtql voltage of 9 to 9.5 hertz activity that is well modulated and well sustained. There is no physiological stage 2 sleep architecture. There is no focal slowing. There is excessive beta activity during the beginning of the study. Interictal and ictal is, at 22 minutes and 9 seconds of the study, the patient had 6 hertz theta activity over the right parietal-temporal region. There is sharp activity over the left frontal temporal region and then there is evolution to generalized 6 hertz activity and that episode resolved by 22 minutes and 26 seconds of the recording. Then the patient was coughing and while she was coughing, the patient had left central parietal as well as temporal sharply contoured activity. During the beginning of this episode, the patient had body shaking, and her eyes closed. She had a similar episode at 7 minutes and 15 seconds of the recording of the study with the same clinical presentation. ACTIVATION PROCEDURE: Photic stimulation was aborted at 4 hertz because of the patient had shaken. No clear seizure during the limited photic stimulation. Hyperventilation is not performed. CLINICAL INTERPRETATION: This is an abnormal routine EEG. It appears the patient had 2 seizures, lasting less than 30 seconds during the study. There is no focal slowing. The background is normal. The excessive beta activity is likely due to medication effect (Ativan). I highly recommend a prolonged EEG for further evaluation. Clinical correlation is recommended. MMODL / IJN: [id number] / BESSY
[2024-12-23] MEDS: levETIRAcetam 500 MG TAB PO SCH ×2 (07:41→08:14)
[2024-12-23] MEDS: Lacosamide IV (ages 17+ yrs) 200 MG/20 ML ML IVP SCH (08:13)
[2024-12-23 10:54] LABS: Glucose,Whole Blood 106 mg/dL (70-110)
[2024-12-23] MEDS: LORazepam 2 MG/ML INJ IV STA (10:58)
--- NOTE | 2024-12-23 14:42 | P.PN ---
Subjective Progress Note Date: 12/23/24 I am following-up with patient and she states she is having generalized body ache and feels sore. It seems at night she had a seizure-like activity lasting between 30-40 seconds. Yesterday I went on Keppra to 1500mg bid and started Vimpat 50mg bid with loading dose of 150mg. She stated she had Epilepsy Monitoring Unit over at [facility] for 2 days and was told nonepileptic but unsure exactly when. Objective - Vital Signs Vital signs: Vital Signs Temp 99.3 F 12/23/24 13:45 Pulse 82 12/23/24 13:45 Resp 16 12/23/24 13:45 BP 135/62 12/23/24 13:45 Pulse Ox 97 12/23/24 13:45 FiO2 Intake & Output 12/22/24 12/23/24 12/23/24 18:59 06:59 18:59 Intake Total 550 Balance 550 Intake: Intake, IV Titration 550 Amount Sodium Chloride 0.9% 1, 300 000 ml @ 75 mls/hr IV . [id number] [facility] Rx#:[id number] levETIRAcetam IV 2,000 mg 250 In Sodium Chloride 0.9% 250 ml @ 1000 mls/hr IVPB ONCE ONE Rx#:[id number] Other: # Voids 0 2 - Exam General: Lying in bed and is not in acute distress. Neuro: Is awake alert oriented to self place and time. Is following simple commands. No aphasia. No dysarthria Motor the strength is 5 out of 5. Patient has unsteady gait. Some of the workup during this hospital visit consisted of: Patient is afebrile. Plasma lactic acid vein is 5.6 BUN is 5, carbon dioxide is 17. Repeated plasma lactic acid vein is normal is 1.9. CBC with differential is unremarkable and CT of the head is no acute intracranial process. Reviewed the CT and I agree with the report. Routine EEG: Is abnormal. It appears the patient had 2 seizures lasting <30 seconds. There is no focal slowing. The background is normal. The excessive beta activity is due to medication effect (Atina). I highly recommend a prolonged EEG. - Labs CBC & Chem 7: 12/21/24 08:26 12/21/24 08:28 Assessment and Plan Assessment: This is a 39-year-old woman with history of nonepileptic seizure who is on Keppra 500 mg twice daily who presents to the emergency department because of seizure-like activity when she was getting her outpatient MRI and while in the ED she had 2 further seizure-like activity. She stated that she missed her Keppra night dose yesterday. Patient had elevated lactic acid vein in the ED. Status Epilepticus. Had two seizures yesterday captured on EEG and appears epileptic. History of nonepileptic seizure and patient had a prolonged EEG which she thinks she had it done at your [facility] and was told nonepileptic seizure and she is on Keppra 500 mg twice daily Plan: Continue Keppra 1500mg bid (at home was on 500mg bid). Continue Vimpat 50mg bid (started on 12/22/2024) because of her continued seizures. If patient has further seizure will go up on Vimpat to 100mg bid. I recommend the patient to be transferred to a [facility] center for prolonged term EEG because of her continued seizure and rule out subclinical seizures. In the mean I will get repeat EEG. Patient was notified of the importance of medication compliance Seizure precautions seizure pads Will pursue with MRI Brain once stable. Recommend patient to follow-up with her neurologist with 2 weeks, Dr. Chaudhary and consideration of a repeat epilepsy monitoring unit (EMU) Per the [facility] because of the seizure, to avoid driving for 6-month until seizure-free, avoid heights, avoid swimming assisted or using heavy machinery Will defer the rest of the medical management to primary team. The plan is discussed with patient, her nurse and catalytic case operator. ADDENDUM: She had another seizure-like today later in the morning and was given Ativan 2mg once. ADDENDUM: Was refused by [facility] in [place] since they stated that they do not have the capacity per the catalytic case operator. While [facility] was also attempted but was notified that they do not have long-term EEGs available at this time. Regarding the [facility] was notified by the catalytic case operator that they do not take her insurance so she might get a bill for hospital visit and I spoke with the patient and she declined being transferred at [facility]. Will reassess the patient condition tomorrow. Time with Patient: Less than 30
[2024-12-23] MEDS: LACOSAMIDE 150 MG TABLET PO SCH (15:42)
[2024-12-23] MEDS ORDERED: Lacosamide IV (ages 17+ yrs) 200 MG/20 ML ML IVP SCH (21:00)
[2024-12-23] MEDS: traZODone HCL 50 MG TAB PO PRN (23:30)
--- NOTE | 2024-12-24 05:15 | EEG ---
ELECTROENCEPHALOGRAM REPORT CLINICAL HISTORY: This is a 39-year-old woman, who is in status epilepticus and having recurrent seizures. The video EEG is obtained to evaluate for seizure epileptiform activity. RELEVANT MEDICATION,: 1. Keppra. 2. Vimpat. 3. Ativan. EEG TYPE: This is a 1 hour EEG with video using the 10/20 electrode placement system. Start of recording was 11:50 a.m. and stop recording was 12:55 p.m., both on December 23, 2024. DESCRIPTION: Wakefulness and drowsiness are obtained. During awake state, the posterior- dominant rhythm consists of oiw-ac-bqgsouiy voltage of 10.5 to 11.5 hertz activity that is well modulated and well sustained. There is no physiological stage 2 sleep architecture. There is no focal slowing. During to begin of the study, there is diffuse excessive beta activity. Interictal and ictal, there is sharply controlled activity over the left temporal more than central and it only few times. Otherwise, there is no clear epileptiform discharge or seizure on the EEG. ACTIVATION PROCEDURE: Photic stimulation and hyperventilation is not performed. CLINICAL INTERPRETATION: This is an abnormal 1 hour EEG with video. The background is normal. The sharply contoured activity over the left temporal more than central increases cortical irritabilities, but there are no clear seizure discharges during the study. This study is better compared to the routine EEG performed on 12/22/2024. Clinical correlation is recommended. SHELDON / CARLENEN: [id number] / MTDD
--- NOTE | 2024-12-24 06:27 | PN ---
PROGRESS NOTE DATE OF SERVICE: 12/23/2024 CHIEF COMPLAINT: Status epilepticus. HISTORY OF PRESENT ILLNESS: This lady is doing well. She has not had any seizures in the last 24 hours. She is on IV Vimpat. She states she has been having a little difficulty swallowing on and off for some time and was scheduled to have a barium swallow. We will hold off on this until she is an outpatient. REVIEW OF SYMPTOMS: Other than the swallowing problems, she has no complaints. PHYSICAL EXAMINATION: VITAL SIGNS: Normal. CHEST: Clear. CARDIAC: Normal. NECK: Normal. IMPRESSION: 1. Grand mal seizure disorder. 2. Try switching her Vimpat over 250 mg twice a day orally in preparation for possibly discharging soon. MMODL / IJN: [id number] /
--- NOTE | 2024-12-24 15:20 | P.PN ---
Subjective Progress Note Date: 12/24/24 I am following up with the patient and according to the nurse she felt the patient had questionable seizure-like activity early in the morning patient was given Ativan 1 mg. Upon seeing her she is very sleepy and after 10 minutes she was drowsy but is awake able. Her seizure-like activity the nurse described as the patient was having eye fluttering then was confused and sleepy. Objective - Vital Signs Vital signs: Vital Signs Temp 97.9 F 12/24/24 14:00 Pulse 82 12/24/24 14:00 Resp 16 12/24/24 14:00 BP 87/57 12/24/24 14:00 Pulse Ox 96 12/24/24 14:00 FiO2 Intake & Output 12/23/24 12/24/24 12/24/24 18:59 06:59 18:59 Other: # Voids 3 1 - Exam General: Lying in bed and is not in acute distress. Neuro: There is moderate to severe drowsy but is awake able to voice. She is oriented to self and she correctly stated she is in the hospital. She is somewhat slow to respond but she responds No aphasia. Pupils are round about 3 mm and reactive to light. No facial weakness. No dysarthria. Motor the strength is lifting all extremities above gravity equally. Some of the workup during this hospital visit consisted of: Patient is afebrile. Plasma lactic acid vein is 5.6--resolved BUN is 5, carbon dioxide is 17. Repeated plasma lactic acid vein is normal is 1.9. CBC with differential is unremarkable Keppra level is 32.6 CT of the head is no acute intracranial process. Reviewed the CT and I agree with the report. Routine EEG: Is abnormal. It appears the patient had 2 seizures lasting <30 seconds. There is no focal slowing. The background is normal. The excessive beta activity is due to medication effect (Atina). I highly recommend a prolonged EEG. 1 hour EEG on 12/23/2024: Is abnormal routine EEG. The background is normal. The sharply contoured activity over the left temporal more than the central increases cortical irritability but there is no clear seizure or discharges during the study. The study is better compared to the routine EEG performed on 12/22/2024. - Labs CBC & Chem 7: 12/21/24 08:26 12/21/24 08:28 Assessment and Plan Assessment: This is a 39-year-old woman with history of nonepileptic seizure who is on Keppra 500 mg twice daily who presents to the emergency department because of seizure-like activity when she was getting her outpatient MRI and while in the ED she had 2 further seizure-like activity. She stated that she missed her Keppra night dose yesterday. Patient had elevated lactic acid vein in the ED. Status Epilepticus. Continues to have more seizure in which she had one today per the nurse and was given Ativan. 1 hour EEG yesterday is no seizure or clear discharges and seems better compared to 12/23/2024 EEG. Currently on Keppra and Vimpat. History of nonepileptic seizure and patient had a prolonged EEG which she thinks she had it done at your [facility] and was told nonepileptic seizure and she is on Keppra 500 mg twice daily Plan: Continue Keppra 1500mg bid (at home was on 500mg bid). Continue Vimpat 150mg bid. I started the patient on Depakote 500mg bid. I recommend the patient to be transferred to a [facility] for prolonged term EEG because of her continued seizure and rule out subclinical seizures. Yesterday [facility] as well as [facility] declined transfer since at [facility] they stated they had no capacity and [facility] stated that they did not do long-term EEG yesterday. Regarding [facility] was attempted yesterday but patient declined since her insurance is not accepted. Today will reattempt [facility]. And will try [facility]. In the mean I will get repeat EEG. Ordered MRI Brain seizure protocol. I ordered ESR, TSH, vitamin B12, folate, ammonia level. Seizure precautions seizure pads Recommend patient to follow-up with her neurologist with 2 weeks, Dr. Chaudhary and consideration of a repeat epilepsy monitoring unit (EMU) Per the [facility] because of the seizure, to avoid driving for 6-month until seizure-free, avoid heights, avoid swimming assisted or using heavy machinery Will defer the rest of the medical management to primary team. The plan is discussed with patient, her nurse and case manager specialist. ADDENDUM: [facility] again declined since no Capacity and [facility] declined. Time with Patient: Less than 30
[2024-12-24] MEDS: DIVALPROEX 500 MG TABLET.DR PO SCH (16:45)
--- NOTE | 2024-12-24 17:29 | MR ---
EXAMINATION TYPE: MR brain wo/w con DATE OF EXAM: 12/24/2024 4:49 PM COMPARISON: CT brain CLINICAL INDICATION: Female, 39 years old with history of seizure, Seizure TECHNIQUE: Multiplanar, multiecho imaging on a 3.0 Patsy magnet is performed through the brain. Stud y is performed within 24 hours of arrival to the hospital.Multiplanar, multiecho imaging on a 3.0 Promise la magnet is performed through the knee. IV Contrast: 8 mL Gadobutrol (None, if empty) FINDINGS: The craniovertebral junction is normal. The pituitary is normal. Diffusion-weighted imaging is performed. No abnormal hyperintensity is present to suggest an acute i ntracranial infarct or acute ischemic change. Signal within the brain appears normal. Temporal lobes are symmetrical. Ventricles and sulci are appropriate for the patient age. IMPRESSION: 1. No suspicious abnormality pre and postcontrast MRI brain [facility] Marilin Denney, Workstation: [facility], 12/24/2024 5:26 PM
--- NOTE | 2024-12-24 22:48 | PN ---
PROGRESS NOTE DATE OF SERVICE: 12/24/2024 CHIEF COMPLAINT: Uncontrolled seizure disorder. HISTORY OF PRESENT ILLNESS: This lady is doing well and feels okay. It was planned that she will go home, but then she states she had 2 seizures yesterday. She did not notify the nurses, so nothing was documented. PHYSICAL EXAMINATION: GENERAL: She is awake and alert. CHEST: Clear. CARDIAC: Normal. ABDOMEN: Soft, nontender. IMPRESSION: 1. Uncontrolled seizure disorder. 2. Status asthmaticus. PLAN: Hold discharge to see if she continues to have any seizure activity. She was asked to let the nurses know if she feels she is going to have a seizure or has already had one. MMODL / IJN: [id number] /
--- NOTE | 2024-12-24 22:48 | EEG ---
ELECTROENCEPHALOGRAM REPORT CLINICAL HISTORY: This is a 39-year-old woman with history of seizure, who is in status epilepticus and continues to have seizure-like activity. The video EEG is obtained to evaluate for seizure epileptiform activity. RELEVANT MEDICATIONS: 1. Vimpat. 2. Keppra. 3. Ativan. EEG TYPE: This is a routine 21-channel EEG with video using the 10/20 electrode placement system. DESCRIPTION: Wakefulness and drowsiness are obtained. During awake state, the posterior dominant rhythm consists of leq-fw-ebyhnmvc voltage of 9 hertz activity. There is no physiological stage 2 sleep architecture. There is no focal slowing. There is diffuse excessive beta activity. Interictal and ictal is, during this study, there is sharply controlled activity predominantly over the left frontal. No clear seizure or discharges noted during the study. ACTIVATION PROCEDURE: Photic stimulation did not evoke a posterior driving response. There is no abnormality during the photic stimulation. Hyperventilation is not performed. CLINICAL INTERPRETATION: This is an abnormal routine EEG. The background is normal. There is sharply contoured activity over the left frontal which can increase risk of cortical irritability. No clear seizure or discharges. The excessive beta activity is likely due to medication effect (Ativan). Otherwise, no clear epileptiform discharges and no seizure during the study. Clinical correlation is recommended. MMODL / IJN: [id number] / MTDD
--- NOTE | 2024-12-25 13:17 | P.PN ---
Subjective Progress Note Date: 12/25/24 I am following up with the patient and in the morning I was notified by the nurse that the patient had possible seizure-like activity lasting for 5 minutes. She is doing better currently. It seems overnight she had a second-degree heart block. Did not give any Ativan and currently is doing better Objective - Vital Signs Vital signs: Vital Signs Temp 97.5 F L 12/25/24 10:10 Pulse 66 12/25/24 10:35 Resp 16 12/25/24 10:10 BP 95/64 12/25/24 10:35 Pulse Ox 99 12/25/24 10:10 FiO2 Intake & Output 12/24/24 12/25/24 12/25/24 18:59 06:59 18:59 Other: Voiding Method Toilet Toilet # Voids 1 2 1 - Exam General: Lying in bed and is not in acute distress. Neuro: Patient is mildly drowsy. She is oriented to self place and time. Is following simple commands. No aphasia. Pupils are round about 3 mm and reactive to light. No facial weakness. No dysarthria. Motor the strength is lifting all extremities above gravity equally. Some of the workup during this hospital visit consisted of: Patient is afebrile. Plasma lactic acid vein is 5.6--resolved BUN is 5, carbon dioxide is 17. Repeated plasma lactic acid vein is normal is 1.9. CBC with differential is unremarkable Keppra level is 32.6 Vitamin B12 is 438 Serum folate is 9.4 Ammonia level is 24 HSV 1/2 DNA PCR is nondetected. ESR is 21 CT of the head is no acute intracranial process. Reviewed the CT and I agree with the report. Routine EEG: Is abnormal. It appears the patient had 2 seizures lasting <30 seconds. There is no focal slowing. The background is normal. The excessive beta activity is due to medication effect (Atina). I highly recommend a prolonged EEG. 1 hour EEG on 12/23/2024: Is abnormal routine EEG. The background is normal. The sharply contoured activity over the left temporal more than the central increases cortical irritability but there is no clear seizure or discharges during the study. The study is better compared to the routine EEG performed on 12/22/2024. Routine EEG on 12/24/2024 is abnormal. The background is normal. There are sharply contoured activity over the left frontal which can increase risk of cortical irritability. No clear seizure or discharges. Excessive beta activity is likely due to medication effect (Ativan). MRI Brain: No suspicious abnormality pre and postcontrast MRI of the brain - Labs CBC & Chem 7: 12/21/24 08:26 12/21/24 08:28 Labs: Abnormal Lab Results - Last 24 Hours (Table) 12/24/24 Range/Units 17:15 ESR 21 H (0-20) mm/Hr Assessment and Plan Assessment: This is a 39-year-old woman with history of nonepileptic seizure who is on Keppra 500 mg twice daily who presents to the emergency department because of seizure-like activity when she was getting her outpatient MRI and while in the ED she had 2 further seizure-like activity. She stated that she missed her Keppra night dose yesterday. Patient had elevated lactic acid vein in the ED. Status Epilepticus. Continues to have more seizure in which she had one today per the nurse and was given Ativan. The last 2 EEGs yesterday and the day prior there is no seizure or discharges. Currently on Keppra, Vimpat and Depakote. MRI Brain is normal. 2nd Degree heart block History of nonepileptic seizure and patient had a prolonged EEG which she thinks she had it done at your [facility] and was told nonepileptic seizure and she is on Keppra 500 mg twice daily Plan: Continue Keppra 1500mg bid (at home was on 500mg bid), Vimpat 150mg bid and Depakote 500mg bid. Patient was rejected for transfer for prolonged EEG at [facility], [facility] for the last 2 days. Patient does not want pursue going to [facility] since they do not take her insurance and she will likely get a bill. I recommend the patient to follow-up as an outpatient with her neurologist, Dr. Chaudhary within 2 weeks and I recommend a repeat epilepsy mild unit as an outpatient and will defer modification of her seizure medication as an outpatient. Please avoid giving any Ativan and notify us of any seizure-like activity during this hospital visit. Regarding her second-degree heart block cardiology is consulted Seizure precautions seizure pads Recommend patient to follow-up with her neurologist with 2 weeks, Dr. Chaudhary and consideration of a repeat epilepsy monitoring unit (EMU) Per the [facility] because of the seizure, to avoid driving for 6-month until seizure-free, avoid heights, avoid swimming assisted or using heavy machinery Will defer the rest of the medical management to primary team. The plan is discussed with patient, her nurse. Dr. Durham will resume neurology service tomorrow A.M. then Dr. Elena this Saturday A.M. if she continues to be here. Time with Patient: Less than 30
--- NOTE | 2024-12-25 13:26 | P.CRDCN ---
History of Present Illness Consult date: 12/25/24 History of present illness: HISTORY OF PRESENTING ILLNESS: 39-year-old female with past medical history of nonepileptic seizures on Keppra presented to the emergency department with concerns of seizure-like activity when she was getting an outpatient MRI. During her hospital stay during telemetry monitoring it was noticed that patient had an instance of second-degree heart block for which cardiology was consulted. She denies any social history of smoking, recreational use marijuana use or alcohol use Patient denies any family history of premature cardiac disease or sudden cardiac in first and second-degree relatives. She has been before without any cardiovascular complications during peripartum or .. Diagostics: Admission Labs: Hb 13, BUN 5, creatinine 0.8, magnesium 1.8, TSH 0.8, Admission EKG: Normal sinus rhythm On review of telemetry data it appears that patient had a second-degree Mobitz 1 AV block with Wenckebach phenomena when patient was sleeping at 3 AM. REVIEW OF SYSTEMS: 14 point review of system is negative except what is mentioned above in HPI. PHYSICAL EXAMINATION: Neck: Brisk carotid upstroke, no jugular venous distention. Lungs: Clear to auscultation. Heart: Regular rate and rhythm, S1-S2, , no murmur or rub. Abdomen: Soft nontender, positive bowel sounds. Extremities: No edema, intact distal pulses. Neuro: Alert, oritented, no focal deficits. Detailed neuro exam was not performed. ASSESSMENT: # Mobitz type I second-degree AV block ,Wenckebach, 1 episode during sleep at 3 AM, asymptomatic # Nonepileptic seizure # Breakthrough seizure PLAN: At this time patient has normal cardio pulmonary physical examination. She does not have any prior cardiovascular history. On detailed review of her EKG and telemetry it appears that she had Mobitz type I second-degree AV block which is Wenckebach phenomena during her sleep which was asymptomatic. She only had 1 episode of this. This is very physiological. Patient is cleared from cardiovascular standpoint. Recommend outpatient follow- up with cardiology Gurmeet Thao MD, FACC, RPVI Thank you for allowing [facility] to participate in this patient's care. Feel free to reach out in case of any followup questions. Past Medical History Past Medical History: Seizure Disorder Additional Past Medical History / Comment(s): per - conversion disorder. pseudoseizures. Obstetric history: She has had 3 previous vaginal deliveries and 2 spontaneous abortions. This is her sixth . She's had care with me since the first trimester. Blood type is O+, antibodies negative, rubella immune, hepatitis B-, GBS negative, HIV nonreactive, RPR nonreactive. She does have a history of some pseudoseizures brought on by anxiety and stress. History of Any Multi-Drug Resistant Organisms: None Reported Past Surgical History: No Surgical Hx Reported Past Anesthesia/Blood Transfusion Reactions: No Reported Reaction Past Psychological History: Anxiety, Depression Smoking Status: Never smoker Past Alcohol Use History: Occasional Past Drug Use History: None Reported - Past Family History Mother Family Medical History: No Reported History Medications and Allergies Home Medications Medication Instructions Recorded Confirmed Type FLUoxetine HCL [Fluoxetine HCl] 60 mg PO HS 12/21/24 12/21/24 History levETIRAcetam [Keppra] 500 mg PO BID 12/21/24 12/21/24 History Allergies Allergy/AdvReac Type Severity Reaction Status Date / Time No Known Allergies Allergy Verified 12/21/24 08:25 Physical Exam Vitals: Vital Signs Temp Pulse Resp BP Pulse Ox 12/25/24 12:57 98.8 F 64 16 104/68 97 12/25/24 10:35 66 95/64 12/25/24 10:15 64 101/69 12/25/24 10:10 97.5 F L 69 16 101/69 99 12/25/24 07:51 98 F 59 L 16 103/63 99 12/25/24 01:44 97.7 F 64 18 126/77 98 12/24/24 21:17 108/70 12/24/24 19:31 97.6 F 73 20 87/51 97 12/24/24 14:00 97.9 F 82 16 87/57 96 Intake and Output 12/24/24 12/25/24 12/25/24 22:59 06:59 14:59 Other: Voiding Method Toilet Toilet # Voids 1 2 1 Results 12/21/24 08:26 12/21/24 08:28 Current Medications Generic Name Dose Route Start Last Admin Trade Name Freq PRN Reason Stop Dose Admin Divalproex Sodium 500 mg 12/24/24 15:30 12/25/24 09:56 Divalproex 500 Mg Tablet.Dr PO 500 mg BID MICHELL Administration Fluoxetine HCl 60 mg 12/22/24 21:00 12/24/24 21:18 Fluoxetine Hcl 20 Mg Cap PO 60 mg HS MICHELL Administration Sodium Chloride 1,000 mls @ 75 mls/hr 12/21/24 11:15 12/25/24 09:57 Saline 0.9% IV Not Given .[id number] MICHELL Lacosamide 150 mg 12/23/24 14:00 12/25/24 09:55 Lacosamide 150 Mg Tablet PO 150 mg BID MICHELL Administration Levetiracetam 1,500 mg 12/23/24 09:00 12/25/24 09:55 Levetiracetam 500 Mg Tab PO 1,500 mg Q12HR MICHELL Administration Lorazepam 1 mg 12/21/24 16:19 12/24/24 11:05 Lorazepam 2 Mg/Ml Inj IV 1 mg Q4HR PRN Administration Seizures Naloxone HCl 0.2 mg 12/21/24 11:09 Naloxone 0.4 Mg/Ml 1 Ml Vial IV Q2M PRN Opioid Reversal Trazodone HCl 50 mg 12/23/24 23:23 12/23/24 23:30 Trazodone Hcl 50 Mg Tab PO 50 mg HS PRN Administration Insomnia Intake and Output 12/24/24 12/25/24 12/25/24 22:59 06:59 14:59 Other: Voiding Method Toilet Toilet # Voids 1 2 1 12/21/24 08:26 12/21/24 08:28
[2024-12-26 08:05] VITALS: RESP 14
--- NOTE | 2024-12-26 12:08 | P.PN ---
Subjective Progress Note Date: 12/26/24 The patient is a 39-year-old female who is seen in [facility] for Dr. Zach Ramirez, in collaboration with Dona Dai, via teleneurology. For full history, please see Dr. Atkinson shows original neurology consultation. The chart has been reviewed The patient reports not having any seizures through the night. She states that the seizure medications are making her tired. She says that she did sleep well last night. Objective - Vital Signs Vital signs: Vital Signs Temp 97.9 F 12/26/24 07:21 Pulse 66 12/26/24 08:45 Resp 14 12/26/24 08:45 BP 117/71 12/26/24 07:21 Pulse Ox 97 12/26/24 07:21 FiO2 Intake & Output 12/25/24 12/26/24 12/26/24 18:59 06:59 18:59 Intake Total 1080 540 Balance 1080 540 Intake: Oral 1080 540 Other: Voiding Method Toilet Toilet Toilet # Voids 2 2 - Exam General: The patient is well-nourished, well-developed and in no acute distress. HEENT: Head is atraumatic, normocephalic. Fundus not visualized. There is no scleral icterus. Mucous membranes are moist. Neurological examination Mental status: Patient is awake, alert and oriented x 3. Her speech is clear. Cranial nerves: 2-12 grossly intact - Labs CBC & Chem 7: 12/21/24 08:26 12/21/24 08:28 Assessment and Plan Assessment: 1. The patient was admitted with a diagnosis of status epilepticus. She reportedly has a history of seizure disorder with true seizures and pseudoseizures. According to the history and physical, the patient is poorly compliant with her home Keppra dosing. She is no longer following with the neurologist. She has been receiving refills on her Keppra, from her family doctor. Plan: 1. The patient was started on Vimpat, in addition to her Keppra dosing. The patient reportedly continued to have breakthrough seizures and so Depakote was added. I have elected to discontinue Depakote as this patient is childbearing age and the risk of does not outweigh the benefits of this medication. 2. The patient should follow-up with an epileptologist, for further seizure control. Dr. Eugene Maldonado is recommended. This was discussed with the patient. 3. The patient is neurologically stable for discharge. Time with Patient: Less than 30 (25 minutes were spent caring for this patient today including, reviewing imaging, chart documentation, labs, placing orders and creating this note)
[2024-12-26 12:41] VITALS: BP 116/70; PULSE 72; TEMP 98.2
== END 2024-12-26 13:27 | disposition home or self-care (01) | DRG 53 ==
LOC: EC 08:09 → 5NMEDONC 11:09 → 1SOBS 15:04 → 5NMEDONC 12-24 16:37
PROVIDERS: ADMIT Family Medicine; ATTEND Family Medicine
PROC: 4A10X4Z Monitoring of Central Nervous Electrical Activity, External Approach (ICD-10-PCS; 2024-12-22)
PROC: 4A10X4Z Monitoring of Central Nervous Electrical Activity, External Approach (ICD-10-PCS; 2024-12-23)
PROC: 4A10X4Z Monitoring of Central Nervous Electrical Activity, External Approach (ICD-10-PCS; principal; 2024-12-24)
DX: G40.401 Other generalized epilepsy and epileptic syndromes, not intractable, with status epilepticus (principal); E87.20 Acidosis, unspecified; I44.1 Atrioventricular block, second degree; J45.902 Unspecified asthma with status asthmaticus; Z11.52 Encounter for screening for COVID-19; R13.10 Dysphagia, unspecified; Z79.899 Other long term (current) drug therapy; Z91.199 Patient's noncompliance with other medical treatment and regimen due to unspecified reason
CPT/HCPCS: 36415; 70450; 70553; 80053; 80177; 82140; 82607; 82746; 83605; 83735; 84443; 84702; 85025; 85652; 87502; 87529; 87635; 93005; 95813; 95816; 96361; 96374; 96375; 99291

== ENCOUNTER → 2024-12-21 | Outpatient (CLI) | payer OTHER ==
--- NOTE | 2024-12-21 08:59 | MR ---
EXAMINATION TYPE: MR abdomen wo con DATE OF EXAM: 12/21/2024 8:17 AM COMPARISON: Ultrasound 11/19/2024 CLINICAL INDICATION: Female, 39 years old with history of Liver mass protocol, Liver mass protocol pe r abnormal US: Pelvic pain TECHNIQUE: Multiplanar, multisequence images of the CT abdomen were obtained without IV contrast. IV Contrast: 8 cc Gadobutrol (None if empty). The patient had a seizure prior to obtaining any postco ntrast sequences and was sent to the ER. FINDINGS: Heart normal size without pericardial effusion. No pleural effusion. The liver is enlarged measuring 20.1 cm, possibly due to the presence of a Aixa's lobe. No significant loss of signal on out of phase T1 weighted sequence to suggest fatty infiltration. No biliary ductal dilatation. Exam is limited due to the lack of postcontrast sequences. Technologist indicates that the patient arnett d a seizure and had to be taken to the ER. T2 hyperintense lesions are present scattered throughout the liver, largest measuring 2.0 cm probably cysts. A couple of these have mild T2 hyperintensity, for example, left liver lobe, coronal image 17 measuri ng 9 mm and the dominant lesion likely corresponding to the ultrasound abnormality measuring 2.3 cm w ithin segment 6 left liver lobe. There is mild decreased T1 hyperintensity, mild increased T2 hyperin tensity, and bright signal on diffusion. Again, limited assessment due to the lack of postcontrast se quences. No gross abnormality identified of the gallbladder, adrenal glands, kidneys, spleen, or pancreas on t hese limited sequences. No upper abdominal adenopathy, gross bowel abnormality, or ascites fluid is identified. Prominent follicular change partially visualized within the ovaries. IMPRESSION: 1. The patient had a seizure prior to obtaining the postcontrast sequences and had to be sent to the ER. Only precontrast sequences were obtained. 2. Scattered cysts within the liver measuring up to 2.0 cm. 3. A couple lesions show mild increased T2 hyperintensity and restricted diffusion suggesting benign hemangiomas. However, the dominant lesion inferior right liver lobe (corresponding to the ultrasound abnormality) is subtle on T1. FNH and adenoma are in the differential. Hemangioma is also possible bu t considered less likely given the hypoechoic appearance on ultrasound. Hepatoma considered unlikely in the absence of hepatitis. As the lesion is well seen on ultrasound, ultrasound surveillance can be utilized in 6 months. [facility], , 12/21/2024 8:57 AM
== END | disposition home or self-care (01) ==
LOC: RADMRIMAIN 07:09
PROVIDERS: ATTEND Family Medicine
DX: K76.89 Other specified diseases of liver (principal); R13.10 Dysphagia, unspecified; R16.0 Hepatomegaly, not elsewhere classified; R56.9 Unspecified convulsions; K76.9 Liver disease, unspecified
CPT/HCPCS: 74181

== ENCOUNTER → 2025-03-24 | Outpatient (CLI) | payer OTHER ==
--- NOTE | 2025-03-24 13:54 | FL ---
EXAMINATION TYPE: FL barium swallow DATE OF EXAM: 03/24/2025 COMPARISON: NONE CLINICAL INDICATION: Female, 39 years old with history of R16.0; R76.89; R13.10, difficulty swallowin g for 2 months. Feels like food getting stuck upper thorax region. TECHNIQUE: A double contrast esophagram is performed utilizing air and barium. A total of 26 second s of fluoroscopic time was utilized during procedure and 78 images obtained. Total DAP = n/p. FINDINGS: The esophagus shows normal motility and emptying into the stomach. No evidence of fixed hi atal hernia or stricture noted. No intraluminal mass identified. No significant gastroesophageal refl ux was seen during real time performance of this study. IMPRESSION: No significant abnormality is seen to account for patient's symptoms. [facility], , 03/24/2025 1:51 PM
== END | disposition home or self-care (01) ==
LOC: RADFLMAIN 10:18
PROVIDERS: ATTEND Family Medicine
DX: R16.0 Hepatomegaly, not elsewhere classified (principal); K76.89 Other specified diseases of liver; R13.10 Dysphagia, unspecified
CPT/HCPCS: 74220

== ENCOUNTER → 2025-06-04 | Outpatient (CLI) | payer OTHER ==
--- NOTE | 2025-06-04 08:26 | MR ---
EXAMINATION TYPE: MR pelvis wo/w con DATE OF EXAM: 06/04/2025 7:54 AM COMPARISON: Ultrasound. CLINICAL INDICATION: Female, 40 years old with history of Liver mass; PHH, Pelvic cramping, ovarian c yst, abn US. TECHNIQUE: Triplane multisequence imaging was performed of the pelvis. IV Contrast: 7.5 mL Gadobutrol FINDINGS: Reproductive: Vagina: Unremarkable. Uterus: The uterus is anteverted in position. Uterus measures 8.5 x 4.5 byr 6.2 cm. The endometrium a nd junctional zone are within normal limits. IUD is seen within the endometrium in appropriate place ment.. Ovaries: Follicular changes are noted to the ovaries. The right ovary measures 3.4 x 1.8 x 3.2 cm. Th e left ovary measures 2.4 x 1.9 x 2.3 cm Multiple dilated pelvic vascular structures are seen bilaterally. Including left complex follicle is not definitively visualized. No abnormal postcontrast enhancement. Bladder: Unremarkable. Bowel: Unremarkable as visualized. Peritoneum: No free fluid or adenopathy. Lymph nodes: No evidence of adenopathy. Vasculature: Unremarkable. Musculoskeletal: Bone marrow signal is within normal signal intensity. Abdominal wall/soft tissues: Unremarkable. IMPRESSION: 1. No hemorrhagic follicle visualized. No suspicious ovarian lesions. No evidence of suspicious pelvi c mass. No abnormal postcontrast enhancement. 2. Dilated pelvic vessels bilaterally suggestive pelvic congestion syndrome. 3. IUD in appropriate placement. [facility], , 06/04/2025 8:24 AM
== END | disposition home or self-care (01) ==
LOC: RADMRIMAIN 06:47
PROVIDERS: ATTEND Family Medicine
DX: R16.0 Hepatomegaly, not elsewhere classified (principal); K76.89 Other specified diseases of liver; R13.10 Dysphagia, unspecified
CPT/HCPCS: 72197; A9585